=== PATIENT | male | born 1985 | race Caucasian/White ===

== ENCOUNTER 2016-02-15 18:29 | Inpatient (IN) | payer OTHER ==
[~2016-02-15] VITALS: Ht 172.7 cm; Wt 81.2 kg
[~2016-02-15 18:29] MED LIST: DEPAKOTE250 M1 PO; METHYLPHENIDATE5 MG PO; NEURONTIN800 M1 PO; NORTRIPTYLINE25 M1 PO; PROTONIX40 M3 PO; PROVENTIL HFA6.7 GM INH; SINGULAIR10 M1 PO; TRILEPTAL600 MG PO
--- NOTE | 2016-02-15 18:36 | ED PSYCHIATRIC COMPLAINT ---
History of Present Illness General Chief Complaint: ETOH/Drug Related Complaint Stated Complaint: SI,ETOH DETOX Source: patient Exam Limitations: physical impairment Vital Signs & Intake/Output Vital Signs & Intake/Output Vital Signs Date Time Temp Pulse Resp B/P Pulse O2 O2 Flow FiO2 Ox Delivery Rate 02/14 2006 97 02/14 194 Room Air Room Air 02/15 1856 98.2 64 18 134/82 02/14 1845 98.2 64 20 134/82 97 Room Air Allergies Coded Allergies: peanut (Severe, ANAPHYLAXIS 09/04/15) clams (ITCHING SWELLING 09/04/15) wheat (WHOLE WHEAT SPECIFICALLY - GI UPSET 02/15/16) Reconcile Medications Albuterol Sulfate (Proventil Hfa) 6.7 GM HFA.AER.AD 2 PUF INH 4 TIMES/DAY PRN BREATHING PROBLEMS (Reported) Diphenhydramine HCl (Benadryl) 25 MG CAPSULE 1-2 CAP PO PRN SLEEP/ALLERGIES ( Reported) Gabapentin 400 MG CAPSULE 1 CAP PO TID ANXIETY/MOVEMENT/MOOD DISORDER ( Reported) Gabapentin (Neurontin) 800 MG TABLET 1 TAB PO QHS ANXIETY/MOVEMENT/MOOD DISORDER (Reported) Melatonin 5 MG TABLET 1 TAB PO PRN SLEEP (Reported) Montelukast Sodium (Singulair) 10 MG TABLET 1 TAB PO DAILY ALLERGIES ( Reported) Triage Note: PT BIBA FROM [facility] FOR ETOH DETOX. STATES HE LAST DRANK AT 0300 YESTERDAY AND DRINKS A 5TH OF VODKA DAILY. PT ALSO STATES HE HAS HAD THOUGHTS OF SUICIDE WITHOUT PLAN. PT CHANGING NOW INTO [facility] AND IS WANDED Triage Nurses Notes Reviewed? yes Onset: Abrupt Duration: unknown duration Timing: remote history HPI: 02/15/16 30-year-old man presents to the emergency department requesting alcohol withdrawal. He also states that he's depressed and admits to suicidal ideation. He denies any prior history of DTs or withdrawal seizures. His last drink was earlier today. The onset of the symptoms were abrupt, the duration is unclear, the severity is significant as his symptoms required her to come to the emergency department for care. He also has a past medical history of asthma. He admits to chest tightness. He also states that he's been taking extra gabapentin, not overdose but to assist him with his withdrawal. (JIMENEZ TOLENTINO DO) Past History Medical History Any Pertinent Medical History? see below for history Respiratory: asthma Gastrointestinal: ESOPHAGITIS Cancer(s): BRAIN CANCER Pneumonia Vaccine: 07/17/13 Surgical History Surgical History: BRAIN TUMOR REMOVAL Psychosocial History Who do you live with Family What is your primary language Azeri Family History Hx Contributory? No (JIMENEZ TOLENTINO DO) Review of Systems Review of Systems Constitutional: Denies: fever. EENTM: Denies: visual changes. Respiratory: Denies: short of breath. Cardiovascular: Reports: see HPI. GI: Reports: see HPI. Genitourinary: Reports: no symptoms. Musculoskeletal: Reports: no symptoms. Skin: Denies: rash. Neurological/Psychological: Reports: depressed. Hematologic/Endocrine: Reports: no symptoms. Immunologic/Allergic: Reports: no symptoms. (JIMENEZ TOLENTINO DO) Physical Exam Physical Exam General Appearance: alert, awake, anxious, mild distress Head: atraumatic, normal appearance Eyes: Bilateral: normal appearance, PERRL, EOMI. Ears, Nose, Throat: normal pharynx, normal ENT inspection Neck: normal inspection, supple Respiratory: normal breath sounds, chest non-tender, no respiratory distress Cardiovascular: regular rate/rhythm Gastrointestinal: soft, non-tender Extremities: normal range of motion, evidence of injury Neurological/Psychiatric: no motor/sensory deficits, awake, alert, anxious Appearance/Memory/Insight: disheveled Behavoir/Eye Contact/Speech: cooperative Thoughts/Hallucinations: no apparent hallucination Skin: intact, normal color, warm/dry SAD PERSONS SAD PERSONS Response Value Male Sex? yes 1 Depression/Hopelessness? yes 2 Previous Attempts/Psych Care yes 1 Excessive Ethanol/Drug Use? yes 1 Single//? yes 1 Social Support? has no support 1 Stated Future Intent? yes 2 Total 9 SAD PERSONS Done? yes (JIMENEZ TOLENTINO DO) Progress Differential Diagnosis: drug intoxication, drug overdose, drug withdrawal, DEPRESSION Plan of Care: Orders Procedure Date/time Status Admit to inpatient psych 02/15 2252 Active Add-on Test (ER Only) 02/14 2042 Active CIWA 02/14 2042 Active URINE DRUG SCREEN FOR ER ONLY 02/14 2042 Complete Continuous Observation Monitor 02/14 1949 Active TROPONIN LEVEL 02/14 1949 Complete SALICYLATE 02/14 1949 Complete LIPASE 02/14 1949 Complete ETHANOL 02/14 1949 Complete COMPREHENSIVE METABOLIC PANEL 02/14 1949 Complete CBC WITHOUT DIFFERENTIAL 02/14 1949 Complete AMYLASE 02/14 1949 Complete EKG 02/14 1949 Active ED CRISIS PSYCH CONSULT 02/14 1949 Active Laboratory Tests 02/15/16 2100: Salicylates < 1.0, Serum Alcohol < 10.0 02/15/16 2100: Anion Gap 12, Estimated GFR > 60, BUN/Creatinine Ratio 11.1, Glucose 85, Calcium 9.0, Total Bilirubin 0.6, AST 27, ALT 29, Alkaline Phosphatase 46, Troponin I < 0.01, Total Protein 6.9, Albumin 4.3, Globulin 2.6, Albumin/Globulin Ratio 1.7, Amylase < 30 L, Lipase 39, CBC w Diff NO MAN DIFF REQ, RBC 4.46 L, MCV 91.9, MCH 31.4 H, RDW 14.9 H, MPV 8.5, Gran % 49.5, Lymphocytes % 33.4, Monocytes % 5.8, Eosinophils % 10.7 H, Basophils % 0.6, Absolute Granulocytes 2.8, Absolute Lymphocytes 1.9, Absolute Monocytes 0.3, Absolute Eosinophils 0.6, Absolute Basophils 0, PUBS MCHC 34.2, Urine Opiates Screen < 100.00, Methadone Screen < 40, Barbiturate Screen < 60, Ur Phencyclidine Scrn < 6.00, Amphetamines Screen < 100, U Benzodiazepines Scrn < 85, Urine Cocaine Screen < 50, Urine Cannabis Screen < 5.00 Initial ED EKG: PENDING (JIMENEZ TOLENTINO DO) Departure Departure Disposition: STILL A PATIENT Condition: Stable Clinical Impression Primary Impression: Depression Secondary Impressions: Alcohol dependence with withdrawal Referrals: PATIENT HAS NO PRIMARY CARE DR (PCP/Family) Referred to [facility] as new patient No Departure Forms: Customer Survey General Discharge Information Comments 02/15/16 8 PM Patient signed out to Dr. Dietz at 7 PM. (JIMENEZ TOLENTINO DO) Psych Admission Note Psychiatric Admission: I have seen and evaluated BARRIE NOVAK. I have also reviewed all the pertinent lab results and diagnostic results. BARRIE NOVAK will be admitted to our inpatient Psychiatric unit for treatment and care. (DIEGO HERNANDEZ,LINDSEY Dolan) Critical Care Note Critical Care Note Critical Care Time: 30-74 min (JIMENEZ TOLENTINO DO)
[2016-02-15 18:56] VITALS: BP 134/82
[2016-02-15] MEDS ORDERED: GABAPENTIN400 M2 PO (20:14)
[2016-02-15] MEDS ORDERED: NEURONTIN800 M2 PO (20:15)
[2016-02-15] MEDS ORDERED: BENADRYL25 MG PO (20:16)
[2016-02-15] MEDS ORDERED: MELATONIN5 M7 PO (20:16)
[2016-02-15 21:16] LABS: ABSOLUTE BASOPHIL COUNT 0 /CUMM (0.0-0.2); ABSOLUTE EOSINOPHIL COUNT 0.6 /CUMM (0.0-0.7); ABSOLUTE GRANULOCYTE CT 2.8 /CUMM (1.4-6.5); ABSOLUTE LYMPH COUNT 1.9 /CUMM (1.2-3.4); ABSOLUTE MONOCYTE COUNT 0.3 /CUMM (0.10-0.60); BASOPHIL % 0.6 % (0.0-2.0); EOSINOPHIL % 10.7 % (0-5); GRANULOCYTE % 49.5 % (42.2-75.2); HEMATOCRIT 40.9 % (42-52); MEAN CORPUSCULAR HGB 31.4 PG (27.0-31.0); MEAN CORPUSCULAR HGB CONC 34.2 G/DL (33.0-37.0); MEAN CORPUSCULAR VOLUME 91.9 FL (80.0-94.0); MEAN PLATELET VOLUME 8.5 FL (7.4-10.4); PLATELET COUNT 166 /CUMM (130-400); RBC DISTRIBUTION WIDTH 14.9 % (11.5-14.5); RED BLOOD CELL CT 4.46 /CUMM (4.70-6.10); WHITE BLOOD CELL COUNT 5.6 /CUMM (4.8-10.8)
--- NOTE | 2016-02-15 22:49 | ED PSYCH CRISIS CONSULTATION ---
Crisis Consult Basic Assessment Date of Consult: 02/15/16 Responsible Person/Accompanied By: self/biba Insurance Authorization: Insurance #1: Insurance name: BALDEMAR BRITTON Phone number: Policy number: [id number] Group number: BALDEMAR Garcia Authorization number: ED Provider: Patient's ED Provider: JIMENEZ TOLENTINO DO Primary Care Physician: Patient's PCP: PATIENT HAS NO PRIMARY CARE DR PCP's Phone Number: Current Psychiatrist: [facility] Chief Complaint: ETOH/Drug Related Complaint Patient's Quote: i'm thinking about suicide Present Illness: Pt is a 30 yo male biba this evening to [facility] after he dialed 911 and reported thinking about killing himself.Pt was last inpatient at [facility] in August 2015 and discharged to [facility] inpatient for 120 days. Since his discharge 3 weeks ago pt reports daily etoh use - 750ml vodka/day, increased depression, anxiety with paninc attacks and SI beginning yesterday. He reports decreased appetite, poor sleep, impaired memory, concentrayion and lack of energy. [facility] been sporadically staying with father, mother and friends. Pt reports a hx of adhd and depression starting 5 yrs ago following brain tumor removal. Pt reports taking gabapentin 400mg tID and 800 mg qhs. Pt reports headaches and inability to function. PT reports thoughts of either o/d on medications and etoh or step in front of a car. Pt presents as depressed, cooperative and Ox3. Pt is voluntarily seeking inpatient psychiatric admission. Patient's Address: [place] [address] Other Phone Number: Who Do You Live With? Other (see notes) ([facility]) Family/Informants Interviewed: left vm for father Allergies - Coded Allergies: peanut (Severe, ANAPHYLAXIS 09/04/15) clams (ITCHING SWELLING 09/04/15) wheat (WHOLE WHEAT SPECIFICALLY - GI UPSET 02/15/16) Current Medications - Scheduled Medications Gabapentin 400 MG CAPSULE 1 CAP PO TID ANXIETY/MOVEMENT/MOOD DISORDER #90 ( Reported) Entered as Reported by LOUISE CACERES on 02/15/162013 Gabapentin (Neurontin) 800 MG TABLET 1 TAB PO QHS ANXIETY/MOVEMENT/MOOD DISORDER (Reported) Entered as Reported by LOUISE CACERES on 02/15/162014 Montelukast Sodium (Singulair) 10 MG TABLET 1 TAB PO DAILY ALLERGIES ( Reported) Entered as Reported by MARY LONDONO on 09/04/15 1009 Scheduled PRN Medications Albuterol Sulfate (Proventil Hfa) 6.7 GM HFA.AER.AD 2 PUF INH 4 TIMES/DAY PRN BREATHING PROBLEMS (Reported) Entered as Reported by MARY LONDONO on 09/04/15 1011 Diphenhydramine HCl (Benadryl) 25 MG CAPSULE 1-2 CAP PO PRN SLEEP/ALLERGIES ( Reported) Entered as Reported by LOUISE CACERES on 02/15/162015 Melatonin 5 MG TABLET 1 TAB PO PRN SLEEP (Reported) Entered as Reported by LOUISE CACERES on 02/15/162015 Laboratory Results: Laboratory Tests 02/15/16 2100: Salicylates < 1.0, Serum Alcohol < 10.0 02/15/16 2100: Anion Gap 12, Estimated GFR > 60, BUN/Creatinine Ratio 11.1, Glucose 85, Calcium 9.0, Total Bilirubin 0.6, AST 27, ALT 29, Alkaline Phosphatase 46, Troponin I < 0.01, Total Protein 6.9, Albumin 4.3, Globulin 2.6, Albumin/Globulin Ratio 1.7, Amylase < 30 L, Lipase 39, CBC w Diff NO MAN DIFF REQ, RBC 4.46 L, MCV 91.9, MCH 31.4 H, RDW 14.9 H, MPV 8.5, Gran % 49.5, Lymphocytes % 33.4, Monocytes % 5.8, Eosinophils % 10.7 H, Basophils % 0.6, Absolute Granulocytes 2.8, Absolute Lymphocytes 1.9, Absolute Monocytes 0.3, Absolute Eosinophils 0.6, Absolute Basophils 0, PUBS MCHC 34.2, Urine Opiates Screen < 100.00, Methadone Screen < 40, Barbiturate Screen < 60, Ur Phencyclidine Scrn < 6.00, Amphetamines Screen < 100, U Benzodiazepines Scrn < 85, Urine Cocaine Screen < 50, Urine Cannabis Screen < 5.00 Past History Past Medical History Respiratory: asthma Gastrointestinal: ESOPHAGITIS Psychiatric: NONTYPICAL MOOD DISORDER DEPRESSION, ANXIETY Cancer(s): BRAIN CANCER Past Surgical History Surgical History: BRAIN TUMOR REMOVAL Psychosocial History Strengths/Capabilities: intelligent, supportive mother Physical Limitations (Interventions): S/p brain surgery and removal of part of brain Psychiatric Treatment History Psych Treatment Psychiatric Treatment Yes Inpatient Treatment Yes Outpatient Treatment Yes Location of Treatment [facility], [facility] Reason for Treatment depression; ETOH detox Dates of Treatment last [facility] August 2015; IOP 2013 Response to Treatment relapse following discharge [facility] discharge 01/09 Diagnosis by History: Depression, Anxiety, ADD Substance Use/Abuse History Drug Use/Abuse Substances Used/Abused Yes Substance Used/Abused Alcohol Last Used 3am How much used/taken 1/5 Vodka How often daily For how long past 3 weeks Substance Abuse Treatment Substance Abuse Treatment Past Substance Abuse TX Yes Inpatient Treatment Yes Outpatient Treatment Yes Location of Treatment [facility] August 2015; OP 2013 Reason for Treatment ETOH detox and tx Response to Treatment frequent relapse Comments: pt reports relapsing immediately following d/c from [facility] Current Mental Status Mental Status Orientation: Person, Place, Situation Affect: Anxious, Depressed, Hopeless, Sad Speech: WNL Neuro-vegetative: Appetite Decreased, Concentration Poor, Energy Decreased, Helpless, Loss of Interest, Sleep Disturbance Appearance Appearance- Dress/Hygiene: hospital gown. sitting up on bed during consult. Head in hand reporting bad headache. Behaviors Thought Process: WNL Thought Content: WNL Memory: Impaired Insight: Fair SI/HI Risk Assessment Past Suicidal Ideation/Attempts Yes Current Suicidal Ideation/Att Yes Past Homicidal Ideation/Att: No Current Homicidal Ideation/Attempts No Degree of Intent: Thoughts/No Intent Danger To: Self Gravely Disabled: Poor Impulse Control, Poor Judgment Risk Factors: chronic/serious med cond., high anxiety/distress, history of suicide atmpts, SA/MH hospitalized, substance abuse, isolate/no social support, poor impulse control, lives alone, male, limited support Lethality Ratin PTSD Checklist PTSD Done? patient declined ED Management Sitter: Yes Restraints: No DSM5/PS Stressors/Medical Prob Diagnosis' (DSM 5, Stressors, Medical): unspecified depressive d/o homeless Current GAF: 25 Comments: Pt reports not following up with outpatient tx since [facility] discharge. Pt reports continuing to take gabapentin. Departure Disposition Psych Medical Clearance Date: 02/15/16 Medically Cleared at: 2200 Time Started: 2204 Time Ended: 2244 Psychiatrist Consulted: Maria Eugenia Vasquez MD Date Disposition Established: 02/15/16 Time Disposition Established: 2249 Plan for Disposition - Modality: Inpatient Psychiatry Facility: [facility] Rationale for Disposition: PT reports positive SI with increased depression, anxiety and daily etoh abuse Type of IP Admission: Voluntary Referrals PATIENT HAS NO PRIMARY CARE DR (PCP/Family)
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
[2016-02-15 23:46] VITALS: BP 131/83
[2016-02-16] VITALS (11 sets, daily range): BP systolic 105–150; BP diastolic 68–92
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
--- NOTE | 2016-02-16 10:43 | History & Physical ---
General Information and HPI MD Statement: I have seen and personally examined BARRIE NOVAK and documented this H&P. The patient is a 30 year old M who presented with a patient stated chief complaint of requesting alcohol detox]. Source of Information: patient Exam Limitations: no limitations History of Present Illness: 30-year-old male in by ambulance from [place] for alcohol detox drinking a fifth toe but Every day also has suicidal ideations with no plan as been feeling very depressed will be admitted for evaluation and treatment Allergies/Medications Allergies: Coded Allergies: peanut (Severe, ANAPHYLAXIS 09/04/15) clams (ITCHING SWELLING 09/04/15) wheat (WHOLE WHEAT SPECIFICALLY - GI UPSET 02/15/16) Home Med list Albuterol Sulfate (Proventil Hfa) 6.7 GM HFA.AER.AD 2 PUF INH 4 TIMES/DAY PRN BREATHING PROBLEMS (Reported) Diphenhydramine HCl (Benadryl) 25 MG CAPSULE 1-2 CAP PO PRN SLEEP/ALLERGIES ( Reported) Gabapentin (Neurontin) 800 MG TABLET 1 TAB PO QHS ANXIETY/MOVEMENT/MOOD DISORDER (Reported) Gabapentin 400 MG CAPSULE 1 CAP PO TID ANXIETY/MOVEMENT/MOOD DISORDER ( Reported) Melatonin 5 MG TABLET 1 TAB PO PRN SLEEP (Reported) Montelukast Sodium (Singulair) 10 MG TABLET 1 TAB PO DAILY ALLERGIES ( Reported) Compliance With Home Meds: UNKNOWN Past History Travel History Traveled to [place] past 21 day No Medical History EENT: NONE Respiratory: asthma Gastrointestinal: ESOPHAGITIS Hepatic: NONE Renal: NONE Musculoskeletal: NONE Psychiatric: NONTYPICAL MOOD DISORDER DEPRESSION, ANXIETY,ADD Endocrine: NONE Blood Disorders: NONE Cancer(s): BRAIN CANCER 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 Other Employment History Employment Unemployed Review of Systems Review of Systems Constitutional: Reports: see HPI. Exam & Diagnostic Data Last 24 Hrs of Vital Signs/I&O Vital Signs Date Time Temp Pulse Resp B/P Pulse O2 O2 Flow FiO2 Ox Delivery Rate 02/15 0809 96.3 63 150/78 02/15 0808 96.3 63 150/78 02/15 0533 62 105/68 02/15 0232 61 136/76 02/14 2346 95.6 61 131/83 02/14 2255 98.6 66 18 129/80 98 Room Air 02/14 2006 97 02/14 1941 Room Air Room Air 02/14 1856 98.2 64 18 134/82 02/14 1845 98.2 64 20 134/82 97 Room Air Intake & Output 02/15 1600 02/15 0800 02/15 0000 Intake Total Output Total Balance Patient 179 lb Weight Physical Exam General Appearance Alert, Oriented X3, Cooperative, No Acute Distress Skin No Rashes, No Breakdown HEENT Atraumatic, PERRLA, EOMI, Mucous Membr. moist/pink Neck Supple, No JVD, No thryomegaly, +2 Carotid Pulse wo Bruit, No LAD Lymphatic Axillary nl, Cervical nl Cardiovascular Regular Rate, No Murmurs Lungs Clear to Auscultation, Normal Air Movement Abdomen Normal Bowel Sounds, Soft, No Hepatospenomegaly, No Masses, tender to deep palpation in the epigastric area Neurological nonfocal Extremities No Clubbing, No Cyanosis, No Edema, Normal Pulses, No Tenderness/ Swelling Last 24 Hrs of Labs/Shane: Laboratory Tests 02/15/16 2100: Salicylates < 1.0, Serum Alcohol < 10.0 02/15/16 2100: Anion Gap 12, Estimated GFR > 60, BUN/Creatinine Ratio 11.1, Glucose 85, Calcium 9.0, Total Bilirubin 0.6, AST 27, ALT 29, Alkaline Phosphatase 46, Troponin I < 0.01, Total Protein 6.9, Albumin 4.3, Globulin 2.6, Albumin/Globulin Ratio 1.7, Amylase < 30 L, Lipase 39, TSH 1.720, CBC w Diff NO MAN DIFF REQ, RBC 4.46 L, MCV 91.9, MCH 31.4 H, RDW 14.9 H, MPV 8.5, Gran % 49.5, Lymphocytes % 33.4, Monocytes % 5.8, Eosinophils % 10.7 H, Basophils % 0.6, Absolute Granulocytes 2.8, Absolute Lymphocytes 1.9, Absolute Monocytes 0.3, Absolute Eosinophils 0.6, Absolute Basophils 0, PUBS MCHC 34.2, Urine Opiates Screen < 100.00, Methadone Screen < 40, Barbiturate Screen < 60, Ur Phencyclidine Scrn < 6.00, Amphetamines Screen < 100, U Benzodiazepines Scrn < 85, Urine Cocaine Screen < 50, Urine Cannabis Screen < 5.00 Diagnostic Data ITS Data Unobtainable at this time Assessment/Plan As Ranked By This Provider Problem List: 1. Alcohol dependence with withdrawal 2. Major depression 3. Alcohol addiction Core Measures/Miscellaneous Acute Coronary Syndrome ACS Diagnosis: No Cerebrovascular Accident CVA/TIA Diagnosis: No Congestive Heart Failure CHF Diagnosis: No Venous Thromboembolism VTE Risk Factors: No Risk Factors VTE Prophylaxis Ordered Inpt: Early Ambulation No Mech VTE prophylaxis d/t: No contraindications No VTE Pharm Prophylaxis d/t: No contraindications VTE Diagnosis: No VTE Type: NONE VTE Confirmed by (Test): NONE Severe Sepsis Severe Sepsis Present: No Septic Shock Septic Shock Present: No Miscellaneous Documentation Attending Case Discussed With: SANDRA VAIL MD Primary Care Physician: PATIENT HAS NO PRIMARY CARE DR Patient sees these Specialists Psychiatry Level of Patient Care: [facility] Consults Needed: Consulting Specialty: Psychiatry Consulting Physician: Dr. Vail Reason for Consult: alcohol excess and withdrawal depression with suicidal ideations
--- NOTE | 2016-02-16 12:52 | SOCIAL WORKER TX PLAN PSYCH ---
Treatment Plan - Please Document: - Evidence that there is ongoing collaboration between - the patient and the interdisciplinary team, - including the patient's active participation and - responsibility for engaging in the treatment regimen, - and that the treatment plan is individualized and - relevant to the patient's conditions. - Treatment plan should reflect documentation indicating - that all active therapeutic efforts are included. Strengths/Capabilities: intelligent, Pt. wants to stay sober and do something with his life. r Physical Limitations (Interventions): S/p brain surgery and removal of part of brain Patient Identified Trmt Goals: " I want my life to be better then it has been." Discharge Plan: IOP Problem/Goals #1 Problem #1: suicidal ideation Goal (Short Term): Today I will attend 2 groups Today I will identify 2 stressors Today I will identify 2 positive supports Today I will work on recognizing 3 emotions I am feeling Goal (Brick Molder Hand): Be free of suicidal thoughts/attempts Develop 3 coping skills to deal with depression Identify 3 positive support systems to call in crisis Develop a crisis plan with 3 del rosario people Identify 2 positive traits per week about myself Identify 2 things I have to look forward to Identify 2 positive people in my life and 1 thing I appreciate about them Interventions: Learn ways to manage depressive symptoms accordingly and identify positive supports to manage life stressors and mood fluctuations. Modalities: Encourage groups, education on depression, provide CBT treatment, family meeting. Problem/Goals #2 Problem #2: alcohol dependence/abuse Goal (Short Term): Be free of drug/alcohol use/abuse Avoid people, places and situations where temptation might be overwhelming Learn five triggers for alcohol & drug use Goal (Skilled Nursing): 1) Refrain from alcohol use 2) Identify 3 triggers for use 3) Identify 3 sober supports 4) Identify 3 coping skills Interventions: Learn ways to manage cravings to use substances accordingly and identify coping skills to prevent relapse from occurring due to anxious/depressed feelings. Modalities: Encourage groups, education on addiction, provide CBT treatment, family meeting. DSM5/PS Stressors/Medical Prob Diagnosis' (DSM 5, Stressors, Medical): unspecified depressive d/o homeless Current GAF: 25 Treatment Team - Responsibilities of members of the treatment team include: - Medication Management- MD or RADIO DESPATCHER - Medication Administration and Monitoring- Nurse - Group Therapy- Occupational Therapist - 1:1 Therapy,Disch Planning,family involvement-Jig Boring Machine Set Up Operator
--- NOTE | 2016-02-16 14:02 | IP INCIDENTAL NOTE PSYCH ---
Incidental Note Notation: MARGARITA obtained for Dr. Rola Morin (see in paper chart). This sports book writer left VM for Dr. Rola Morin (#[phone]) at [facility], requesting collateral on patient. Awaiting return phone call.
--- NOTE | 2016-02-16 16:47 | IP INCIDENTAL NOTE PSYCH ---
Incidental Note Notation: Received collateral phone call from Dr. Rola Morin from [facility]. Per collateral : The patient had been treated at [facility]'s transitional living program from summer to 2015. While there, he was slowly tapered off of Depakote 250mg QAM/500mg QPM, was continued on Concerta 27mg daily, and Gabapentin 400mg TID and 800mg at HS. Depakote had been started during last inpatient [facility] hospitalization in August 2015 , following the patient becoming "manic" on Prozac. Depakote had been tapered off to profound flatness/?depression observed by Dr. Morin. Patient had been fairly stable on Concerta 27mg daily and Gabapentin 400mg TID and 800mg at HS. However the patient was discharged from [facility] due to drinking intermittently during program course. Dr. 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 She believes that this led to severe memory and impulsivity problems. She reported that her clinical impression of the patient was consistent with premorbid Bipolar disorder, and knew of only one prior episode of ozzie experienced by the patient, following a trial of Prozac. She reported that this is the most dangerous week of the year for the patient , as this was around the time last year when the patient's brother questionably suicided. She reported that the patient's brother had been intoxicated and it is unclear if it was an intentional suicide attempt, however resulted in him walking in front of a train. During [facility] program course, the patient did not meet criteria for [facility] services, and his disability status was pending. Dr. Morin emphasized that when the patient's disability is processed, he would qualify for mental health housing. She believes a large component of the patient's depression is related to housing issues, as his parent's enable him to drink alcohol when he stays there. Dr. Morin reported that [facility] would be willing to accept him back to their outpatient program (#[phone]), and also that the patient had been well connected to [facility] program (#[phone]), and had done well there in the past. Dr. Morin recommended patient be trialed on alcohol psychopharmacologic agent of either antabuse, naltrexone or campral given the severity of his alcohol use. She further recommended restarting the patient on Concerta, as this had helped the patient's memory function. She reported no history of the patient abusing stimulant medication, and reported that she would be willing to continue Concerta if the patient returned to [facility] following discharge from [facility]. Dr. Morin reported knowledge of the patient previously trialing Nortriptyline which resulted in HTN, and Risperdal which the patient didn't tolerate well. Per her report, it seemed unclear how adequate the patient's previous trials of SSRIs and other psychotropics were given his drinking pattern. Dr. Morin requested that she be contacted prior to the patient's discharge, and be made aware of his discharge plan. She strongly recommended that the patient follow-up with [facility] or [facility] outpatient, in addition to a long-term rehab such as [facility].
[2016-02-17] VITALS (8 sets, daily range): BP systolic 115–137; BP diastolic 76–84
--- NOTE | 2016-02-17 13:24 | CP SOUTH PROGRESS NOTE PSYCH ---
Psych (Inpt) Progress Note Progress Note Include the following elements, when applicable: Involvement in the active treatment of the patient with behavioral observations of the patient and the patient's response to the treatment. Review of the ongoing treatment process in the context of the treatment plan. Indication of how multi-disciplinary staff members are carrying out the treatment plan. Plans for future interventions and recommendations for revision of the treatment plan. Liaison with other physicians/providers. Progress Note: D/w nursing staff, seen this morning. Says "I feel huang shitty", says he is anxious and withdrawaing from EtOH. He otherwise denies AVH, SI or HI. Vitals reviewed and wnl. No new labs. CIWAs most recently minimal. MSE: poorly groomed CM, limited eye contact. Speech minimal. Mood 'shitty', affect constricted, mildly irritable. TP simple. Content somatic. Cognition grossly intact. I/J fair. A/P: Continue ativan taper and CIWA monitoring. Rest of plan per primary team.
[2016-02-18] VITALS (8 sets, daily range): BP systolic 115–135; BP diastolic 65–78
--- NOTE | 2016-02-18 16:40 | CP SOUTH PROGRESS NOTE PSYCH ---
Psych (Inpt) Progress Note Progress Note Include the following elements, when applicable: Involvement in the active treatment of the patient with behavioral observations of the patient and the patient's response to the treatment. Review of the ongoing treatment process in the context of the treatment plan. Indication of how multi-disciplinary staff members are carrying out the treatment plan. Plans for future interventions and recommendations for revision of the treatment plan. Liaison with other physicians/providers. Progress Note: D/w nursing staff, seen this morning. Remains isolative in bed. Somatically oriented. "I have a headache". He otherwise denies AVH, SI or HI. Vitals reviewed and wnl. No new labs. CIWAs minimal. MSE: poorly groomed CM, limited eye contact. Speech minimal. Mood 'not too good' , affect constricted, mildly irritable. TP simple. Content somatic. Cognition grossly intact. I/J fair. A/P: Continue ativan taper and CIWA monitoring. Rest of plan per primary team.
[2016-02-19] VITALS (8 sets, daily range): BP systolic 102–120; BP diastolic 60–72
--- NOTE | 2016-02-19 11:14 | SOCIAL WORKER PROG NOTE PSYCH ---
Social Work Progress Note Progress Note Patient found sleeping in his room around 10AM today. This feature writer asked patient if we could meet and he agreed with no resistence. Patient reported feeling very depressed today and over the weekend. He reported his depression to be a 7 out of 10 today with 10 being the worst. He reported some anxiety, rating it a 3 out of 10. Patient denied any SI today but reported +SI over the weekend with no plan. Patient reported that he did not have any family visit this weekend. He reported that on Friday he informed his mother that he was in the hospital but he is refusing to have family partake in his treatment. He reported no desire for any family to visit over the weekend and no family has reached out to this feature writer as well. Patient reports that ideally he wishes to return back to [facility] and treatment with [facility]. We attempted to call [facility] today to see his bed status and they were unable to give that information due to the individual he needed to speak to being out for the holiday. Patient will try to call again tomorrow and we will call [facility] after we find out bed status. Patient encouraged to try to refrain from isolating in room today and attend groups that are available today.
--- NOTE | 2016-02-19 11:16 | SOCIAL WORKER PROG TO GOALS ---
Progress Toward Goals Strengths/Capabilities: intelligent, Pt. wants to stay sober and do something with his life. r Physical Limitations (Interventions): S/p brain surgery and removal of part of brain Patient Identified Trmt Goals: " I want my life to be better then it has been." Discharge Plan: [facility] Problem/Goals #1 Problem #1: suicidal ideation Goal (Short Term): Today I will attend 2 groups Today I will identify 2 stressors Today I will identify 2 positive supports Today I will work on recognizing 3 emotions I am feeling Goal (Autocad Detailer): Be free of suicidal thoughts/attempts Develop 3 coping skills to deal with depression Identify 3 positive support systems to call in crisis Develop a crisis plan with 3 del rosario people Identify 2 positive traits per week about myself Identify 2 things I have to look forward to Identify 2 positive people in my life and 1 thing I appreciate about them Interventions: Learn ways to manage depressive symptoms accordingly and identify positive supports to manage life stressors and mood fluctuations. Progress: Patient continues to report depressed mood but denies SI. He is not able to identify possitive supports at this time. He has been sleeping frequently on the unit and isolating. Problem/Goals #2 Problem #2: alcohol dependence/abuse Goal (Short Term): Be free of drug/alcohol use/abuse Avoid people, places and situations where temptation might be overwhelming Learn five triggers for alcohol & drug use Goal (Custodial): 1) Refrain from alcohol use 2) Identify 3 triggers for use 3) Identify 3 sober supports 4) Identify 3 coping skills Interventions: Learn ways to manage cravings to use substances accordingly and identify coping skills to prevent relapse from occurring due to anxious/depressed feelings.
--- NOTE | 2016-02-19 11:39 | CP SOUTH PROGRESS NOTE PSYCH ---
Psych (Inpt) Progress Note Progress Note Include the following elements, when applicable: Involvement in the active treatment of the patient with behavioral observations of the patient and the patient's response to the treatment. Review of the ongoing treatment process in the context of the treatment plan. Indication of how multi-disciplinary staff members are carrying out the treatment plan. Plans for future interventions and recommendations for revision of the treatment plan. Liaison with other physicians/providers. Progress Note: D/w nursing staff, seen this morning. Remains isolative in bed. Somatic complaints have improved, now simply says "I'm depressed". He denies AVH/SI/HI. Vitals reviewed and wnl. No new labs. CIWAs minimal. MSE: poorly groomed CM, limited eye contact. Speech minimal. Mood 'I'm depressed ', affect constricted, mildly irritable. TP impoverished. Content without SI/HI/ AVH. Cognition grossly intact. I/J fair. A/P: Continue ativan taper and CIWA monitoring. Rest of plan per primary team.
--- NOTE | 2016-02-19 13:34 | SOCIAL WORKER PROG NOTE PSYCH ---
Social Work Progress Note Progress Note atient was described by nursing staff as "edgy" and distant . He is aware that he will be here to await probate. He is cooperative, but not proactive at all. Attemted to do continued stay review, but not able to comlete this as office closed. Miriam Sol stated she will record the attemp to do the review.
[2016-02-20] VITALS (8 sets, daily range): BP systolic 128–144; BP diastolic 69–78
--- NOTE | 2016-02-20 12:42 | CP SOUTH PROGRESS NOTE PSYCH ---
Psych (Inpt) Progress Note Progress Note Include the following elements, when applicable: Involvement in the active treatment of the patient with behavioral observations of the patient and the patient's response to the treatment. Review of the ongoing treatment process in the context of the treatment plan. Indication of how multi-disciplinary staff members are carrying out the treatment plan. Plans for future interventions and recommendations for revision of the treatment plan. Liaison with other physicians/providers. Progress Note: [I discussed this patient's progress to date, current mental status, treatment process in the context of the treatment plan, and discharge planning with staff/ team in the daily morning inpatient team meeting. I also met with the patient myself in individual session.] SUBJECTIVE: "Mentally, I feel slow. I can't concentrate." OBJECTIVE: Current Medications Sig/Courtney Start time Last Medication Dose Route Stop Time Status Admin Acetaminophen 500 MG Q6P PRN 02/14 2345 AC PO Al Hydroxide/Mg 30 ML Q4-6 PRN PRN 02/14 2345 AC Hydroxide PO Albuterol Sulfate 2 PUF Q4-6 PRN PRN 02/15 0103 AC 02/15 INH 0542 Folic Acid 1 MG DAILY 02/15 1000 AC 02/19 PO 0809 Gabapentin 800 MG 0 02/15 2200 AC 02/18 PO 2148 Gabapentin 400 MG 1800 02/15 1800 AC 02/18 PO 1838 Gabapentin 400 MG 1200 02/15 1200 AC 02/18 PO 1220 Gabapentin 400 MG 0800 02/15 0800 AC 02/19 PO 0809 Hydroxyzine HCl 50 MG Q6-PRN PRN 02/14 2345 AC 02/18 PO 1220 Lamotrigine 25 MG 0800 02/15 1400 AC 02/19 PO 0809 Lorazepam 2 MG Q2P PRN 02/14 234 AC PO Lorazepam 1 MG Q2P PRN 02/14 2345 AC 02/15 PO 0052 Magnesium Hydroxide 30 ML AT BEDTIME PRN 02/14 234 AC PO Melatonin 5 MG AT BEDTIME 02/15 2200 AC 02/18 PO 2149 Methylphenidate HCl 5 MG 0800,1300 02/19 1300 AC PO Montelukast Sodium 10 MG AT BEDTIME 02/15 2200 AC 02/18 PO 2149 Multivitamins 1 TAB DAILY 02/15 1000 AC 02/19 PO 0809 Nicotine 2 MG Q2 HRS NEEDED PRN 02/16 1845 AC 02/18 PO 1838 Thiamine HCl 100 MG DAILY 02/15 1000 AC 02/19 PO 0810 Trazodone HCl 50 MG AT BEDTIME NEED.. 02/14 2345 AC 02/18 PO 2328 Vital Signs Date Time Temp Pulse Resp B/P Pulse O2 O2 Flow FiO2 Ox Delivery Rate 02/19 1248 84 128/78 02/19 1245 84 128/78 02/19 0833 97.6 59 128/71 02/19 0804 97.6 59 128/71 02/18 2002 97.5 64 119/72 02/18 1941 97.5 64 119/72 02/18 1640 93 102/60 02/18 1639 68 120/69 ASSESSMENT: Chart reviewed. Met with the patient today, who was A&Ox4. He appeared slow to process on encounter, and described his mood as "foggy, I can't concentrate." Patient reported depression of 4/10 (10 being the worst) and anxiety of 0/10 (10 being the worst). He reported depressive symptoms were secondary to poor concentration and memory issues. He denied symptoms of alcohol withdrawal. There were no objective signs of alcohol withdrawal. VSS. Ativan taper for Alcohol detox was successfully completed on 02/19/16. The patient reported feeling depressed over the holiday weekend, and reported he had no visits or phone calls from family. He reported feeling hopeless related to this. He denied feeling hopeless, helpless, and worthless today. He denied active/passive suicidal ideation, plans and intent. He denied symptoms of psychosis, and denied auditory and visual hallucinations. Thought process was linear, and organized. Concentration poor. Judgement/insight appeared limited. This specification writer spoke to Dr. Rola Morin (patient's outpatient psychiatrist)on , who was in favor of the patient resuming Concerta for impaired concentration/memory. She reported the patient had no history of misusing Concerta, and that it improved his concentration/memory issues related to s/p brain surgery in 2010. Of note, the patient had been trialed on Ritalin 10mg BID in August 2015 on [facility] with good effect on memory/concentration. Reviewed with the patient medication education on Ritalin (given that Concerta is nonformulary in hospital). The patient was agreeable to low dose trial Ritalin 5mg BID for impaired concentration/memory s/p brain surgery in 2010. Will monitor the patient's psychiatric symptoms on low dose Ritalin. Patient verbalized the risk/benefit/SE profiles of Ritalin, and was agreeable to trial. PLAN: 1. Continue monitoring the patient on unit for safety and mood. 2. Start Ritalin 5mg BID for impaired concentration/memory. 3. Consider trial of Tegretol if needed for mood stabilization. Will continue to monitor. 4. Dispo planning per primary team.
--- NOTE | 2016-02-20 13:45 | SOCIAL WORKER PROG NOTE PSYCH ---
Social Work Progress Note Progress Note Patient reports feeling somewhat better today compared to yesterday. Patient denies SI today and reports no SI since day but continues to report feeling depressed. He is isolating less today, spending less time in his room and seen socializing more with peers. Patient called [facility] today and they have confirmed that his bed is secure for him to return to once he discharges the hospital. Patient relieved to hear this as he wishes to return back there. Patient expressed his desire to do IOP with post discharge. [facility] that he will be able to have transportation to and from the program. Patient is aware that we are planning to continue his hopsitalization for a few more days to monitor med adjustments and his mood. Patient agrees to stay in the hospital and we will arrange IOP intake once closer to discharge.
[2016-02-21 07:43] VITALS: BP 102/72
--- NOTE | 2016-02-21 10:37 | CP SOUTH PROGRESS NOTE PSYCH ---
Psych (Inpt) Progress Note Progress Note Include the following elements, when applicable: Involvement in the active treatment of the patient with behavioral observations of the patient and the patient's response to the treatment. Review of the ongoing treatment process in the context of the treatment plan. Indication of how multi-disciplinary staff members are carrying out the treatment plan. Plans for future interventions and recommendations for revision of the treatment plan. Liaison with other physicians/providers. Progress Note: [I discussed this patient's progress to date, current mental status, treatment process in the context of the treatment plan, and discharge planning with staff/ team in the daily morning inpatient team meeting. I also met with the patient myself in individual session.] SUBJECTIVE: "I feel a little better." OBJECTIVE: Current Medications Sig/Courtney Start time Last Medication Dose Route Stop Time Status Admin Acetaminophen 500 MG Q6P PRN 02/14 2345 AC PO Al Hydroxide/Mg 30 ML Q4-6 PRN PRN 02/14 2345 AC Hydroxide PO Albuterol Sulfate 2 PUF Q4-6 PRN PRN 02/15 0103 AC 02/15 INH 0542 Aripiprazole 5 MG 0800 02/20 1045 AC PO Folic Acid 1 MG DAILY 02/15 1000 AC 02/20 PO 0750 Gabapentin 800 MG 0 02/15 2200 AC 02/19 PO 2140 Gabapentin 400 MG 1800 02/15 1800 AC 02/19 PO 1825 Gabapentin 400 MG 1200 02/15 1200 AC 02/19 PO 1330 Gabapentin 400 MG 0800 02/15 0800 AC 02/20 PO 0751 Hydroxyzine HCl 50 MG Q6-PRN PRN 02/14 2345 AC 02/18 PO 1220 Lamotrigine 25 MG 00 02/15 1400 AC 02/19 PO 0809 Lorazepam 2 MG Q2P PRN 02/14 2345 DC PO Lorazepam 1 MG Q2P PRN 02/14 2345 DC 02/15 PO 0052 Magnesium Hydroxide 30 ML AT BEDTIME PRN 02/14 2345 AC PO Melatonin 5 MG AT BEDTIME 02/15 2200 AC 02/19 PO 2140 Methylphenidate HCl 5 MG 0800,1300 02/19 1300 AC 02/20 PO 0752 Montelukast Sodium 10 MG AT BEDTIME 02/15 2200 AC 02/19 PO 2140 Multivitamins 1 TAB DAILY 02/15 1000 AC 02/20 PO 0750 Nicotine 2 MG Q2 HRS NEEDED PRN 02/16 1845 AC 02/18 PO 1838 Thiamine HCl 100 MG DAILY 02/15 1000 AC 02/20 PO 0751 Trazodone HCl 50 MG AT BEDTIME NEED.. 02/14 2345 AC 02/19 PO 2139 Vital Signs Date Time Temp Pulse Resp B/P Pulse O2 O2 Flow FiO2 Ox Delivery Rate 02/20 0743 96.1 55 102/72 02/20 2048 98.0 75 16 131/78 02/20 2028 98.0 75 131/78 02/19 1548 69 144/69 02/19 1537 69 144/69 02/19 1248 84 128/78 02/19 1245 84 128 ASSESSMENT: Met with the patient today, who presented A&Ox4. Mood appeared mildly improved. Affect appeared calm and blunted. Eye contact was appropriate. Speech was normal in rate, tone and volume. Patient appeared less withdrawn on encounter today. He reported his concentration/memory were "better" on Ritalin 5mg BID, and reported now feeling able to participate in milieu groups secondary to not feeling "foggy " anymore. He denied feeling hopeless, helpless, or worthless. He denied active/ passive suicidal ideation, plans and intent. He denied homicidal ideation, plans and intent. He reported his depression as 4-5/10 (10 being the worst) and reported anxiety of 0/10 (10 being the worst). He reported his thought process appeared "clearer." Thought process was organized and linear. Thought content was appropriate. He denied auditory and visual hallucinations. There was no evidence of psychotic thought process, paranoid ideation, or lucius delusions. Patient reported tolerating all medication well and denied untoward medication effects. Reviewed with the patient adding a mood stabilizer such as tegretol or Abilify for mood stabilization. Patient was agreeable to trial abilify for mood stabilization. Reviewed the risk/benefit/SE profiles of Abilify, including metabolic risks and irreversable movement disorders. The patient verbalized understanding of all medication education and was agreeable to trial of Abilify. PLAN: 1. Start Abilify 5mg today, and reassess patient's response/tolerance to medication. Will increase tomorrow, if patient tolerates medication. 2. Continue Ritalin 5mg BID for concentration/memory. 3. Continue Lamictal 25mg daily and Gabapentin regimen. 4. Continue monitoring the patient on unit for safety, suicidal ideation, and mood. 5. Continue dispo planning per primary team.
--- NOTE | 2016-02-21 11:36 | SOCIAL WORKER PROG NOTE PSYCH ---
Social Work Progress Note Progress Note Patient continues to present with improved mood and denying suicidal thoughts. He presents with flat affect. He is attending groups on the unit and offers no complaints at present. I notified patient that I will be out of the office for the remainder of the week and will return on Friday after the holiday. I also informed him that we would like to continue his hospitalization through the rest of the week and the weekend and discharge him early next week. Patient responded appropriately to this information and was in agreement with discharge for Friday. Patient has intake for [facility] on Friday at 12:45pm. Patient aware and planning to arrange [employer] transportation today for next week.
[2016-02-21 12:24] VITALS: BP 131/68
[2016-02-21 16:05] VITALS: BP 127/87
[2016-02-21 19:59] VITALS: BP 132/77
[2016-02-22 07:55] VITALS: BP 127/77
[2016-02-22 12:08] VITALS: BP 130/70
--- NOTE | 2016-02-22 15:19 | CP SOUTH PROGRESS NOTE PSYCH ---
Psych (Inpt) Progress Note Progress Note Include the following elements, when applicable: Involvement in the active treatment of the patient with behavioral observations of the patient and the patient's response to the treatment. Review of the ongoing treatment process in the context of the treatment plan. Indication of how multi-disciplinary staff members are carrying out the treatment plan. Plans for future interventions and recommendations for revision of the treatment plan. Liaison with other physicians/providers. Progress Note: Medication list reviewed. Case and treatment plan discussed in team meeting. Staff reports that the patient isolates a lot. Had a bad conversation with his mother. Happy with medication changes, because he finds that his thinking is clearer. Interacting with peers. This week reportedly is the anniversary of brother's suicide. Discharge is planned for Friday. Trigylcerides are very high. Patient seen at 1:09 pm. Casually dressed WM. Reports "doing much better actually. Not really feeling the hopelessness. Feeling motivated again." Pleased with medication changes but reports for 1-1.5 hours taking Abilify, he has a headache, diffuse aches, fatigue and feels cold. He takes Tylenol to address these symptoms and they clear except for fatigue. He appears awake and alert. Affect is calm and blunted. Mood is good. Sad 1/10. Anxiety 0/10. Denies feeling hopeless, helpless, worthless or guilty. Denies active and passive SI, HI, AH, VH and PI. Ox3. Reports sleep is "poor, actually," but last night was the best here at 4 hours of sleep. He requested a repeat dose on trazodone and I ordered it. Appetite: good. Energy: good. Reports brother suicided on 01/31/15. IMPRESSION: Slow progress. Continue present treatment plan. Discharge is planned for Friday. I have requested superintendent house consult about high trigylcerides.
--- NOTE | 2016-02-22 15:49 | SOCIAL WORKER PROG NOTE PSYCH ---
Social Work Progress Note Progress Note Met with patient for one on one session, and while he seemed a little subdued he was completely in agreement with discharge plan, and stated that he was in agreement with plan that he follow-up with [facility] dual diagnosis program, and that he would be living/staying at [facility] where he has stayed before , and indicated that it was agreeable for him, even if not ideal. Patient had been homeless and despondent, but indicated that he does not feel suicidal at present, and that the admission has been very positive, and, hopefully, he can build on this. Patient stated that he was pleased about going to [facility], and will need to arrange transportation from [facility] [place]. patient responded to all questions, but he not elaborate at all, nor initiate any conversation. Continued stay was approved through february 27, 2016, with February 25 being the last covered day.
[2016-02-22 16:10] VITALS: BP 150/79
[2016-02-22 20:29] VITALS: BP 141/71
[2016-02-23 08:32] VITALS: BP 108/71
--- NOTE | 2016-02-23 11:27 | SOCIAL WORKER PROG NOTE PSYCH ---
Social Work Progress Note Progress Note Patient continues to exhibit flat affect. He does, however, deny suicidal ideation at this time. He does exhibit some positive hope for future, with plan to go to [facility], and be at [facility], Where he has stayed before. Called [facility] to see if he could possibly stay there sooner than the planned start date of . Also wanted to speak with coordinator to see if he in fact was set for 02-27-16. She is off this week, but tried to get in touch with her sheet mill supervisor, Keely Curry, at [phone], extension [phone]. Patient is stable and would be able to be discharged from hospital, if he has place to stay
[2016-02-23 12:07] VITALS: BP 142/58
--- NOTE | 2016-02-23 13:18 | SOCIAL WORKER PROG NOTE PSYCH ---
Social Work Progress Note Progress Note Patient states that he does not feel ready for discharge, because he was concerned about whether or not the Abilfy will be o k for him; plus, more importantly, he needs to go directly to [facility] from in-patient unit so that he will be able to arrange the transportation for [employer]. Patient appeared very worried when I talked to him about discharging earlier than the planned Friday02-27-16. The reasons he gave gave have some merit, but not insurmountable. Have not been able to talk to any staff at [place], so this may be moot point as of now. Have made several attempts to reach the clinical supervisor rose grading there, with no success.
--- NOTE | 2016-02-23 13:20 | CP SOUTH PROGRESS NOTE PSYCH ---
Psych (Inpt) Progress Note Progress Note Include the following elements, when applicable: Involvement in the active treatment of the patient with behavioral observations of the patient and the patient's response to the treatment. Review of the ongoing treatment process in the context of the treatment plan. Indication of how multi-disciplinary staff members are carrying out the treatment plan. Plans for future interventions and recommendations for revision of the treatment plan. Liaison with other physicians/providers. Progress Note: [I discussed this patient's progress to date, current mental status, treatment process in the context of the treatment plan, and discharge planning with staff/ team in the daily morning inpatient team meeting. I also met with the patient myself in individual session.] SUBJECTIVE: "I'm doing ok." OBJECTIVE: Current Medications Sig/Courtney Start time Last Medication Dose Route Stop Time Status Admin Acetaminophen 500 MG Q6P PRN 02/14 234 AC 02/22 PO 1152 Al Hydroxide/Mg 30 ML Q4-6 PRN PRN 02/14 2345 AC Hydroxide PO Albuterol Sulfate 2 PUF Q4-6 PRN PRN 02/15 0103 AC 02/15 INH 0542 Aripiprazole 5 MG 0800 02/20 1045 AC 02/22 PO 0819 Folic Acid 1 MG DAILY 02/15 1000 AC 02/21 PO 0750 Gabapentin 800 MG 02/15 220 AC 02/21 PO 2158 Gabapentin 400 MG 1800 02/15 1800 AC 02/21 PO 1900 Gabapentin 400 MG 1200 02/15 1200 AC 02/22 PO 1152 Gabapentin 400 MG 0802/15 0800 AC 02/22 PO 0819 Hydroxyzine HCl 50 MG Q6-PRN PRN 02/14 2345 AC 02/18 PO 1220 Lamotrigine 25 MG 02/15 1400 AC 02/22 PO 0819 Magnesium Hydroxide 30 ML AT BEDTIME PRN 02/14 2345 AC PO Melatonin 5 MG AT BEDTIME 02/15 2200 AC 02/21 PO 2158 Methylphenidate HCl 5 MG 0800,1300 02/19 1300 AC 02/22 PO 1152 Montelukast Sodium 10 MG AT BEDTIME 02/15 2200 AC 02/21 PO 2158 Multivitamins 1 TAB DAILY 02/15 1000 AC 02/21 PO 0750 Nicotine 2 MG Q2 HRS NEEDED PRN 02/16 1845 AC 02/18 PO 1838 Thiamine HCl 100 MG DAILY 02/15 1000 AC 02/21 PO 0750 Trazodone HCl 50 MG AT BEDTIME NEED.. 02/14 2345 AC 02/21 PO 2332 Vital Signs Date Time Temp Pulse Resp B/P Pulse O2 O2 Flow FiO2 Ox Delivery Rate 02/22 1207 64 142/58 02/22 0832 96.6 61 108/71 02/21 2029 98.1 67 141/71 02/21 1610 71 150/79 ASSESSMENT: Met with the patient today, who appeared A&Ox4. Speech was normal in rate,tone and volume. Eye contact was appropriate. Affect was chan in range compared to prior encounters. He reported continued "good" energy, and interacting more in milieu groups with peers. Reported his mood as "ok." He reported concentration/ memory remain improved on Ritalin 5 mg BID. Continued to report mild depression 3-4/10, and anxiety of 0/10. He reported feeling somewhat worried related to securing [employer] transportation for follow-up with [facility]. The patient was reassured that will assist him in arranging this service. The patient reported some feelings of hopelessness and helplessness, he denied feeling worthless. He reported improved sleep last evening with repeat dose of Trazodone. Appetite remains good. Thought process was organized and linear. There was no evidence of paraoid ideation or lucius delusions. Patient denied auditory and visual hallucinations. There was no evidence of symptoms of ozzie/ hypomania. He reported reduction in headache, diffuse aches, fatigue and feeling of coldness since starting Abilify, and associated this to his body becoming more tolerant of medication. He reported these mild symptoms are tolerable and that he has been utilizing prn Tylenol for aches. He is agreeable to continue taking medication. Discussed option of changing Abilify to PM dosing, due to previous report yesterday of fatigue, however he elected to keep dosing in the AM, as symptom has lessened. Discussed with the patient potential of increasing Abilify over the weekend for further mood stabilization if he continues to tolerate. The patient was agreeable to recommendation. AIMS=0. PLAN: 1. Conitnue monitoring the patient on unit for safety, suicidal ideation, and mood. 2. Continue current medications, and current dose of Abilify for now; consider increase in Abilify over the weekend for further mood stabilization if patient continues to tolerate. 3. Lovaza 1g BID started by Dr. Bjorn Sal for elevated trigylcerides. 4. Dispo planning per primary team.
[2016-02-23 15:42] VITALS: BP 114/65
[2016-02-23 19:42] VITALS: BP 131/70
[2016-02-24 08:20] VITALS: BP 130/90
[2016-02-24 08:33] VITALS: BP 132/90
[2016-02-24 12:12] VITALS: BP 150/73
--- NOTE | 2016-02-24 12:58 | CP SOUTH PROGRESS NOTE PSYCH ---
Psych (Inpt) Progress Note Progress Note Include the following elements, when applicable: Involvement in the active treatment of the patient with behavioral observations of the patient and the patient's response to the treatment. Review of the ongoing treatment process in the context of the treatment plan. Indication of how multi-disciplinary staff members are carrying out the treatment plan. Plans for future interventions and recommendations for revision of the treatment plan. Liaison with other physicians/providers. Progress Note: Medication list reviewed. Patient known to me from my recently having rounded on him. Case discussed with nursing staff. Nurse reported that the patient has been visible on the unit. Quiet and cooperative. Apparently refusing thiamine, folate and multivitamin, so I will discontinue them. Patient seen at 10:26 AM. He was playing cards with peer but got up and met with me in the office. Reports doing all right. Reports that he definitely slept better. Seems pleased with trazodone. Affect is calm and blunted. Dr. Sal started Lovaza. Mood is good. Rates sad mood 1/10 and anxiety 0/10. Denies feeling hopeless, helpless, worthless or guilty. Denies active and passive suicidal ideation. Denies homicidal ideation. Denies auditory and visual hallucinations and paranoid ideation. Reports sleep is better. Appetite is good. Energy is good. Tolerating medications well. Whereas he reported having side effects from Abilify for about an hour to an hour and a half after dosing, he is now experiencing fewer of these side effects. IMPRESSION: Slow progress. Continue present treatment plan.
[2016-02-24 15:56] VITALS: BP 141/77
[2016-02-24 19:51] VITALS: BP 146/95
[2016-02-25 08:04] VITALS: BP 126/66
--- NOTE | 2016-02-25 12:07 | CP SOUTH PROGRESS NOTE PSYCH ---
Psych (Inpt) Progress Note Progress Note Include the following elements, when applicable: Involvement in the active treatment of the patient with behavioral observations of the patient and the patient's response to the treatment. Review of the ongoing treatment process in the context of the treatment plan. Indication of how multi-disciplinary staff members are carrying out the treatment plan. Plans for future interventions and recommendations for revision of the treatment plan. Liaison with other physicians/providers. Progress Note: Case discussed with RN, who reported that the patient slept in group room because roommate was noisy during sleep. Patient seen at 10:10 a.m. Was playing chess with peer before meeting with me. Feels well. Has no complaints. Reports Abilify side-effects seem to have decreased. Has a toothache and reports using Tylenol. Affect is calm and blunted. Mood is good. Sad 1/10. Anxiety 0/10. Denies feeling hopeless, helpless, worthless or guilty. Denies active and passive SI, HI, AH, VH and PI. Reports he slept pretty well. Reports appetite and energy are good. Denies mood lability. Wishes to keep Abilify at current dose. Reports only side- effect now is fatigue that starts around dinnertime. Appears awake and alert. IMPRESSION: Slow progress. Continue present treatment plan.
[2016-02-25 12:20] VITALS: BP 133/73
[2016-02-25 15:30] VITALS: BP 126/67
[2016-02-25 20:14] VITALS: BP 140/77
[2016-02-26 07:33] VITALS: BP 149/77
[2016-02-26 12:07] VITALS: BP 135/74
--- NOTE | 2016-02-26 14:27 | CP SOUTH PROGRESS NOTE PSYCH ---
Psych (Inpt) Progress Note Progress Note Include the following elements, when applicable: Involvement in the active treatment of the patient with behavioral observations of the patient and the patient's response to the treatment. Review of the ongoing treatment process in the context of the treatment plan. Indication of how multi-disciplinary staff members are carrying out the treatment plan. Plans for future interventions and recommendations for revision of the treatment plan. Liaison with other physicians/providers. Progress Note: Case and treatment plan discussed in team meeting. Staff reports that the patient has been doing okay. He has been out in the milieu. Interact with peers. Affect flat. Patient seen at 10:15 AM. Reports he is alright. Affect is calm and blunted. Mood is good. Rates sad mood 1/10 and anxiety 0/10. Denies feeling hopeless, helpless, worthless or guilty. Denies active and passive suicidal ideation. Denies homicidal ideation. Denies auditory and visual hallucinations and paranoid ideation. Describes sleep, appetite and energy as good. Patient plans to resume Concerta after discharge and he is concerned about a possible rise in his blood pressure. I advised him to monitor blood pressure after he resumes Concerta. Tolerating medications well, without complaint. Patient plans to go to [facility]. He would like the [facility] at [facility]. IMPRESSION: Slow progress. Continue present treatment plan. Anticipate discharge tomorrow.
--- NOTE | 2016-02-26 15:09 | SOCIAL WORKER PROG NOTE PSYCH ---
See Addendum Social Work Progress Note Progress Note Patient was in a talkative, upbeat mood, and feekls ready for discharge which is sceduled for tomorrow to [facility] and to [facility], where he has an intake tomorrow at 12:45. Patient reports that the Abilify seems to be helping. He shows more affest, and denies any suicidal ideation. HE requested that someone speak with [facility] to get him into [facility] so that he could get more comprehensive treatment. I told him that I would put that in the notes. Patient is ready for d/c tomorrow.
[2016-02-26 15:46] VITALS: BP 124/69
[2016-02-26 19:51] VITALS: BP 139/79
[2016-02-27 07:59] VITALS: BP 127/87
--- NOTE | 2016-02-27 08:16 | CP SOUTH PROGRESS NOTE PSYCH ---
Psych (Inpt) Progress Note Progress Note Include the following elements, when applicable: Involvement in the active treatment of the patient with behavioral observations of the patient and the patient's response to the treatment. Review of the ongoing treatment process in the context of the treatment plan. Indication of how multi-disciplinary staff members are carrying out the treatment plan. Plans for future interventions and recommendations for revision of the treatment plan. Liaison with other physicians/providers. Progress Note: [Chart, medications, and labs reviewed.I discussed this patient's progress to date, current mental status, treatment process in the context of the treatment plan, and discharge planning with staff/ team in the daily morning inpatient team meeting. I also met with the patient myself in individual session.] SUBJECTIVE: "My meds feel right." OBJECTIVE: Current Medications Sig/Courtney Start time Last Medication Dose Route Stop Time Status Admin Acetaminophen 500 MG Q6P PRN 02/14 2345 AC 02/23 PO 1819 Al Hydroxide/Mg 30 ML Q4-6 PRN PRN 02/14 2345 AC 02/24 Hydroxide PO 1322 Albuterol Sulfate 2 PUF Q4-6 PRN PRN 02/15 0103 AC 02/24 INH 1323 Aripiprazole 5 MG 02/20 1045 AC 02/26 PO 0816 Gabapentin 800 MG 02/15 220 AC 02/25 PO 2212 Gabapentin 400 MG 1800 02/15 1800 AC 02/25 PO 1733 Gabapentin 400 MG 1200 02/15 1200 AC 02/25 PO 1207 Gabapentin 400 MG 02/15 0800 AC 02/26 PO 0816 Hydroxyzine HCl 50 MG Q6-PRN PRN 02/14 2345 AC 02/18 PO 1220 Lamotrigine 25 MG 02/15 1400 AC 02/26 PO 0816 Magnesium Hydroxide 30 ML AT BEDTIME PRN 02/14 2345 AC PO Melatonin 5 MG AT BEDTIME 02/15 220 AC 02/25 PO 2212 Methylphenidate HCl 5 MG 0800,1300 02/19 1300 AC 02/26 PO 0816 Montelukast Sodium 10 MG AT BEDTIME 02/15 2200 AC 02/25 PO 2212 Nicotine 2 MG Q2 HRS NEEDED PRN 02/16 1845 AC 02/24 PO 1849 Wqkbs-0-Igmv Ethyl 1 GM 0800,02/22 1400 AC 02/26 Esters PO 0816 Trazodone HCl 50 MG AT BEDTIME NEED.. 02/14 2345 AC 02/25 PO 0003 Vital Signs Date Time Temp Pulse Resp B/P Pulse O2 O2 Flow FiO2 Ox Delivery Rate 02/26 0759 96.6 80 127/87 02/25 1951 97.9 68 139/79 02/25 1546 70 124/69 02/25 1207 71 135/74 ASSESSMENT: Met with the patient today on the date of discharge. Patient presented alert and oriented to person, place, time and situation. He reported feeling "good." Affect was full-range. Speech was normal in rate, tone and volume. He rated his depression 1/10 (10 being the worst), and his anxiety 0/10 (10 being the worst). He denied feeling hopeless, helpless, worthless and guilty. He reported having "good" energy level, concentration, sleep and appetite. He denied passive/active suicidal ideation, plans and intent. He reported protective factors of "myself" and "my sobriety." He denied homicidal ideation. He denied urges/craving to use alcohol. There was no evidence of paranoia, or of lucius delusions. He denied auditory and visual hallucinations. He reported feeling motivated to follow-up with [facility] intake today at 12:45PM. He reported feeling safe and ready for discharge. PLAN: 1. Discharge today. Patient to return to [facility] in [place], [place] and [facility] arranged. 2. Follow-up at [facility] today, at 12:45PM. 3. Abstain from all substances. Patient encouraged to attend AA meetings and to obtain a sponsor to support his recovery. 4. All discharge prescriptions were printed, reviewed and provided to patient on discharge. H/w Ritalin 5mg BID prescription was provided to patient, #28, NR. Patient verbalized understanding of all instruction. 5. Appoint[facility] card for [facility] was provided to patient for . 6. In the event of an emergency, call [phone]/go to nearest emergency department. Patient verbalized understanding of all instruction.
[2016-02-27] MEDS ORDERED: GABAPENTIN400 M2 PO (09:02)
[2016-02-27] MEDS ORDERED: RITALIN5 M2 PO (09:02)
--- NOTE | 2016-02-27 10:15 | DISCHARGE SUMMARY REPORT-PSYCH ---
Visit Information Visit Dates/Diagnosis' Admission Date: 02/15/16 Discharge Date: 02/27/16 Reason for Admission: Suicidal ideation, exacerbation in depression. Psy Discharge Primary Diag: Unspecified Bipolar Disorder Psy Discharge Secondary Diag: Alcohol use disorder, severe; PTSD by history; ADHD by history. Hospital Course Significant Lab Findings: Lab Triglycerides 509 mg/dL H 02/22/16 0553 02/15/16 EKG: Sinus rhythm, with rate of 55. JE=085. EYl=831. Course Complications: None. Consultations: The patient was seen for admission history and physical by Dr. Bjorn Sal. Please see his note for additional information. The patient was again consulted by Dr. Bjorn Sal for elevated triglycerides. Lovaza 1g BID was started by Dr. Bjorn Sal, Allergies: Coded Allergies: peanut (Severe, ANAPHYLAXIS 09/04/15) clams (ITCHING SWELLING 09/04/15) Uncoded Allergies: Whole Wheat. (Mild, GI upset/ cramping 02/18/16) Patient can eat process wheat(like bread) but not whole or unprocess Wheat. Hospital Course/TX Response: The patient was monitored on the unit for safety, mood, suicidal ideation, and alcohol withdrawal. He participated in multimodal treatments on the unit. He was started on an Ativan taper for alcohol detox which he tolerated well and successfully completed. Lamictal was started at 25mg every morning and Abilify was started at 5mg every morning for mood stabilization. Ritalin 5mg was started BID for impaired concentration and memory related to brain tumor removal in 2010 which exacerbated his symptoms of ADHD. Patient tolerated all medications well, and denied untoward medication effects on discharge. During the hospital course, the patient's mood and affect improved. Suicidal ideation remitted, and alcohol detox was completed. The patient refused to allow his family to be involved in his treatment and could not identify any supports to be involved in a family meeting while he was hospitalized. Collateral was obtained from his former outpatient psychiatrist at [facility] Dr. Rola Morin. For details on collateral, please see this technical writer's progress notes. The patient was agreeable to returning back to his former residence at [facility] in [place], [place] and was motivated to attend [facility]. [facility] for the patient to assist with transportation to/from [place], [place] to [place], [place] for after care treatment. An intake appointment at [facility] was scheduled on 02/27/16 at 12:45PM. The patient was advised to abstain from all substances and to attend AA meetings/obtain AA sponsor for support in sobriety. The patient was in favor of discharge plan. On the date of discharge, 02/27/16, the patient presented alert and oriented to person, place, time and situation. He reported feeling "good." Affect was full- range. Speech was normal in rate, tone and volume. Eye contact was appropriate. He rated his depression 1/10 (10 being the worst), and his anxiety 0/10 (10 being the worst). He denied feeling hopeless, helpless, worthless and guilty. He reported having "good" energy level, concentration, sleep and appetite. He denied passive/active suicidal ideation, plans and intent. He reported protective factors of "myself" and "my sobriety." He denied homicidal ideation. He stated and also believed he will not harm himself or others. He denied urges/ craving to use alcohol. There was no evidence of paranoia, or of lucius delusions. Thought process was organized, linear and goal-directed. Thought content was appropriate. He denied auditory and visual hallucinations. Insight and judgement were improved since initial [facility] admission. He reported feeling motivated to follow-up with [facility] intake on 02/27/16 at 12:45PM, and was in favor of [employer] service to assist him with transportation to/from [place] for after care treatment in [place]. He reported feeling safe and ready for discharge. Discharge HBIPS - Tobacco Use Treatment Offered Post DC Medications Offered: Script Given-See Med List Post DC Tobacco Treatment Plan: [facility] Program Appt Date: 03/06/16 Program Appt Time: 1600 - EtOH/Drug Use D/O Treatment Offered Post DC Medications Offered: Ref Med EtOH/Drug Use D/O Post DC EtOH/SubAbuse [place] Plan: [facility]use/[facility] Program Appt Date: 02/27/16 Program Appt Time: 1245 Metabolic Screening - Screen if on a Neuroleptic Medication - Metabolic screening should include: - Blood Pressure, BMI, Glucose or Hgb A1c, & a - Lipid profile from within the past 365 days. Metabolic Screening () Not Applicable, patient not on a neuroleptic. OR ([X]) Patient on a neuroleptic(s) . Enter below results for Glucose or Hemoglobin A1C, and lipid panel if obtained during the last 365 days. BMI: 27.200 Blood Pressure: 137/76 Laboratory Results (If applicable): Lab Cholesterol 162 MG/DL 02/22/16 0553 Cholesterol/HDL Ratio 3 % 02/22/16 0553 Glucose 85 mg/dL 02/15/16 2100 HDL Cholesterol 49 mg/dL 02/22/16 0553 LDL Cholesterol, Calc ND MG/DL 02/22/16 0553 Triglycerides 509 mg/dL H 02/22/16 0553 Discharge Instructions General Discharge Information Discharge Medications: Discharge Medications- (Dose, route, freq, indication): START taking these NEW Home Medications: Gabapentin Dose: ORAL, SEE INSTRUCTIONS Qty: 70 Printed (Gabapentin) 400 MG 400 Milligram for anxiety/movement Refills: 0 CAPSULE disorder Take 1 capsule(400mg)by mouth at 8AM,12PM,and 6PM.Take 2 capsules (800mg) at 10PM. Last Taken:02/27/16 Time:08 Methylphenidate HCl Dose: ORAL, 0800,1300 for Qty: 28 Sent to (Ritalin) 5 MG 5 Milligram memory/concentration Refills: 0 Pharm 1 TABLET Take 1 tablet by mouth at 8AM and 1PM. Last Taken:02/27/16 Time:08 Albuterol Sulfate Dose: Inhale through mouth, Qty: 1 Printed (Ventolin Hfa) 90 2 Puff EVERY 4-6 HOURS Refills: 0 MCG HFA.AER.AD NEEDED as needed for SHORTNESS OF BREATH Take 2 puffs inhalation every 4 to 6 hours as needed for shortness of breath. Last Taken:02/25/16 Time:1323 Nicotine Dose: ORAL, EVERY 2 HOURS Qty: 30 Printed (Nicorelief) 2 MG 2 Milligram NEEDED as needed for Refills: 0 GUM smoking craving Last Taken:02/25/16 Time:1841 [place]-3 Acid Ethyl Dose: ORAL, 0800,2200 for High Qty: 28 Printed Esters (Lovaza) 1 1 Gram triglycerides Refills: 0 GRAM CAPSULE Last Taken:02/27/16 Time:0816 Aripiprazole Dose: ORAL, DAILY @8 AM for Qty: 14 Printed (Abilify) 5 MG 5 Milligram mood stabilization Refills: 0 TABLET Take 1 tablet by mouth every morning. Last Taken:02/27/16 Time:815 Montelukast Sodium Dose: ORAL, AT BEDTIME for Qty: 14 Printed (Montelukast Sodium) 10 Milligram allergies Refills: 0 10 MG TABLET Take 1 tablet by mouth at bedtime. Last Taken:02/26/16 Time:2211 Melatonin Dose: ORAL, AT BEDTIME for Qty: 14 Printed (Melatonin) 5 MG 5 Milligram insomnia Refills: 0 TABLET Take 1 tablet by mouth at bedtime. Last Taken:02/26/16 Time:2211 Lamotrigine Dose: ORAL, DAILY @8 AM for Qty: 14 Printed (Lamictal) 25 MG 25 Milligram MOOD STABILIZATION Refills: 0 TABLET TAKE 1 TAB BY MOUTH EVERY MORNING. Last Taken:02/27/16 Time:08 All discharge prescriptions were printed, reviewed and provided to patient on 02/27/16. H/w prescription for Methylphenidate 5mg BID provided to patient for ADHD, #28, NR. CONTINUE taking these Home Medications: Melatonin (Melatonin) 5 Dose: ORAL, as needed for MG TABLET 1 Tablet SLEEP Last Taken:02/26/16 Time:2211 Multiple Neuroleptics: (X) Not Applicable OR Document below three failed attempts at monotherapy, or a plan to taper to monotherapy, or augmentation of Clozapine. () Patient's Diet: Regular. Patient's Activity: No restrictions. DC Disposition: Patient to return to [facility] in [place], [place]. Recommendations: Patient was advised to please take medications. He was advised to abstain from all substances to to attend AA meetings/obtain AA sponsor to support him in sobriety. He was advised to follow-up with [facility] for smoking cessation on 03/06/16 at 4PM, and was provided with program card. He was advised to attend [facility] intake on 02/27/16 at 12:45PM. Patient was advised to call [phone]/go to nearest emergency department in the event of an emergency. The patient verbalized understanding of all instructions. Referred To: [facility] [address] [place] [address] [phone] Intake scheduled on 02/27/16 at 12:45PM [address] [address] [phone] To return on 02/27/16. [facility] [address] [place] [address] (t)[phone] Group scheduled on 03/06/16 at 4PM. Copies To: [facility]; [facility]
[2016-02-27] MEDS ORDERED: VENTOLIN HFA18 GM INH (10:38)
[2016-02-27] MEDS ORDERED: ABILIFY5 M1 PO (10:38)
[2016-02-27] MEDS ORDERED: LAMICTAL25 M1 PO (10:39)
[2016-02-27] MEDS ORDERED: MONTELUKAST SOD10 M1 PO (10:40)
[2016-02-27] MEDS ORDERED: MELATONIN5 M7 PO (10:40)
[2016-02-27] MEDS ORDERED: LOVAZA1 G1 PO (10:41)
[2016-02-27] MEDS ORDERED: NICORELIEF2 MG PO (10:41)
[2016-02-27 12:14] VITALS: BP 137/76
--- NOTE | 2016-02-27 14:02 | SOCIAL WORKER PROG NOTE PSYCH ---
Social Work Progress Note Progress Note Patient to discharge the hospital today. Patient denies SI/HI/AH/VH today and reports feeling safe to discharge the hospital today. Patient plans to return back to [facility] in [place], [place]. Patient has confirmed with them that his bed is still available. Patient has intake today at [facility] at 12:45pm. Patient plans to attend [facility] with and reside in [place] and has confirmed with [employer] that they will be able to provide him fernanda passes for the month after speaking with his clinician in [facility].
--- NOTE | 2016-02-27 16:57 | IP INCIDENTAL NOTE PSYCH ---
Incidental Note Notation: Spoke to pharmacist Ismael from outpatient pharmacy, where patient filled discharge prescriptions. Per pharmacist, patient was provided with 2 days worth of prescribed gabapentin as the patient's insurance would not cover cost of refill until 02/29/16.
== END 2016-02-27 13:00 | DRG 753 ==
LOC: ERH 18:29 → CP SOUTH 22:52 → ERHI 22:52 → CP SOUTH 23:44
PROVIDERS: Emergency Medicine; Registered Nurse Psychiatric/Mental Health; ADMIT Psychiatry & Neurology Psychiatry
DX: F31.9 Bipolar disorder, unspecified (principal); Z72.89 Other problems related to lifestyle; F43.10 Post-traumatic stress disorder, unspecified; F90.9 Attention-deficit hyperactivity disorder, unspecified type
CPT/HCPCS: 36415; 93005; 93010; G0479; G0480; J3490

== ENCOUNTER 2017-04-18 10:37 | Observation (INO) | payer OTHER ==
[~2017-04-18] VITALS: Ht 180.3 cm; Wt 83.0 kg
[~2017-04-18 10:37] MED LIST changes: +ABILIFY5 M1 PO; +BENADRYL25 MG PO; +GABAPENTIN400 M2 PO; +LAMICTAL25 M1 PO; +LOVAZA1 G1 PO; +MELATONIN5 M7 PO; +MONTELUKAST SOD10 M1 PO; +NEURONTIN800 M2 PO; +NICORELIEF2 MG PO; +RITALIN5 M2 PO; +VENTOLIN HFA18 GM INH
--- NOTE | 2017-04-18 10:58 | ED PSYCHIATRIC COMPLAINT ---
See Addendum History of Present Illness General Chief Complaint: ETOH/Drug Related Complaint Stated Complaint: ETOH/LAC TO FINGER Source: patient Exam Limitations: poor historian, intoxication Vital Signs & Intake/Output Vital Signs & Intake/Output Vital Signs Date Time Temp Pulse Resp B/P B/P Pulse O2 O2 Flow FiO2 Mean Ox Delivery Rate 04/19 1317 98.0 86 18 131/98 99 Room Air 04/19 1316 98.0 86 18 131/98 04/19 0819 97.8 90 18 122/80 99 Room Air 04/19 0617 98.1 69 18 108/80 99 Room Air 04/19 0615 98.1 69 18 108/80 04/19 0416 97.7 75 18 102/78 04/19 0416 97.7 75 18 102/78 98 Room Air 04/19 0228 98.5 75 18 108/90 04/19 0228 98.5 75 18 108/90 98 Room Air 04/19 0012 98.0 88 18 152/95 04/19 0012 98.0 88 18 152/95 98 Room Air 04/18 2210 97.9 114 20 140/90 98 04/18 2135 96.8 74 16 121/72 04/18 2100 96.8 16 16 121/72 98 Room Air ED Intake and Output 04/19 0000 04/18 1200 Intake Total 1500 Output Total Balance 1500 Intake, Oral 1500 Allergies Coded Allergies: peanut (Severe, ANAPHYLAXIS 09/04/15) wheat (Mild, WHOLE WHEAT - GI UPSET/CRAMPING 01/09/17) PATIENT CAN EAT PROCESS WHEAT (LIKE BREAD) BUT NOT WHOLE OR UNPROCESS WHEAT clams (ITCHING SWELLING 09/04/15) Reconcile Medications Aripiprazole (Abilify) 5 MG TABLET 5 MG PO 0800 mood stabilization Take 1 tablet by mouth every morning. Gabapentin 400 MG CAPSULE 400 MG PO SEE ADMIN CRITERIA anxiety/movement disorder Take 1 capsule(400mg)by mouth at 8AM,12PM,and 6PM.Take 2 capsules (800mg) at 10PM. Methylphenidate HCl (Methylphenidate ER) 54 MG TAB.ER.24 1 TAB PO QAM MENTAL HEALTH (Reported) Triage Nurses Notes Reviewed? yes HPI: Patient presents for evaluation status post argument with his mother who then called 911. The patient himself states he does not know why he is here in the emergency department. He has no specific complaint at this time but does admit to suicide ideation without plan. Patient also admits to Alcohol intake. (Camilla HERNANDEZ,Maik Jain) Past History Travel History Traveled to [place] past 21 day No Medical History Any Pertinent Medical History? 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 No (Camilla HERNANDEZ,Maik Jain) Review of Systems Review of Systems Constitutional: Reports: no symptoms. EENTM: Reports: no symptoms. Respiratory: Reports: no symptoms. Cardiovascular: Reports: no symptoms. GI: Reports: no symptoms. Genitourinary: Reports: no symptoms. Musculoskeletal: Reports: no symptoms. Skin: Reports: lesions. Neurological/Psychological: Reports: no symptoms. Hematologic/Endocrine: Reports: no symptoms. Immunologic/Allergic: Reports: no symptoms. All Other Systems: Reviewed and Negative (Camilla HERNANDEZ,Maik Jain) Physical Exam Physical Exam General Appearance: see below Neurological/Psychiatric: see below Comments: Gen.: Well-nourished, well-developed, no acute respiratory distress. Head: Normocephalic, atraumatic. Eyes: Normal inspection bilaterally Ears: Normal inspection bilaterally Nose: Normal inspection Throat/mouth : Moist mucosa Face: slight dried blood on right cheek Neck: Supple, full range of motion, no goiter Heart: Regular rate and rhythm, no murmurs rubs or gallops Lungs: Clear to auscultation bilaterally with normal air entry Chest: Nontender Back: Normal range of motion Abdomen: Soft, nontender, nondistended, normal bowel sounds Extremities: Normal range of motion grossly, equal radial pulses, no cyanosis clubbing or edema, left hand: superfiscial linear abrasions of the left index finger volarly Neurologic: Cranial nerves grossly intact, speech is clear Skin: warm and dry Psychiatric: Calm, cooperative, no apparent delusions or hallucinations SAD PERSONS Done? deferred to crisis (Camilla HERNANDEZ,Maik Jain) Progress Differential Diagnosis: poor impulse control, personality disorder, depression, anxiety, intoxication, withdrawal, drug use, lacerations, infection, tendon injury Plan of Care: Orders Procedure Date/time Status Regular Diet 04/19 B Active URINE DRUGS OF ABUSE 04/[address] in observation 04/18 1621 Active Patient Data 04/18 1621 Active CIWA 04/18 1255 Active Intake & Output 04/18 1128 Active Current Medications Sig/Courtney Start time Last Medication Dose Stop Time Status Admin Gabapentin 400 MG QPM 04/19 2200 AC (Neurontin) Aripiprazole 5 MG DAILY 04/19 1000 AC 04/19 (Abilify) 1318 Gabapentin 400 MG TID 04/19 1000 AC 04/19 (Neurontin) 1318 Lorazepam 2 MG Q8P PRN 04/18 2345 AC 04/19 (Ativan) 0005 Laboratory Tests 04/19/17 1255: Urine Opiates Screen < 100.00, Methadone Screen < 40, Barbiturate Screen 546 H, Ur Phencyclidine Scrn < 6.00, Amphetamines Screen < 100, U Benzodiazepines Scrn < 85, Urine Cocaine Screen < 50, Urine Cannabis Screen 10.20 (Camilla HERNANDEZ,Maik Jain) Hand-Off Endorsed To: Maik Krause DO Endorsed Time: 0700 Pending: consult (Leilani HERNANDEZ,Shoaib Junior) Departure Departure Disposition: STILL A PATIENT Condition: Stable Clinical Impression Primary Impression: Alcohol intoxication Qualifiers: Complication of substance-induced condition: uncomplicated Qualified Code: F10.920 - Alcohol use, unspecified with intoxication, uncomplicated Secondary Impressions: Suicide ideation Referrals: Patient Has No Primary Care Dr (PCP/Family) Departure Forms: Customer Survey General Discharge Information (Camilla HERNANDEZ,Maik Jain) Departure Comments 04/19/17 (Maik Krause DO) ED Attending Observation Initial Observation Note: I have seen and personally examined BARRIE NOVAK on 04/18/17 at 1929. I agree with the current emergency department documentation. The disposition (admission or discharge) is uncertain at this time, he needs a period of observation for the following reason(s): Patient is acutely intoxicated with alcohol and is potentially at risk of acute alcohol withdrawal, seizures, DTs. This patient will now require observation with serial CIWA scores for the possibility of acute alcohol withdrawal. If this patient does begin to experience acute alcohol withdrawal then admission should be considered. Otherwise the patient would be amenable to outpatient management. The ED Nurse caring for this patient has been personally informed as to what the patient is being observed for. (Camilla HERNANDEZ,Maik Jain) Initial Observation Note: I agree with the current emergency department documentation. The disposition (admission or discharge) is uncertain at this time, he needs a period of observation for the following reason(s): pt to be evaluated this AM for suicidality. The ED Nurse caring for this patient has been personally informed as to what the patient is being observed for. (Leilani HERNANDEZ,Shoaib Junior) Observation Re-Evaluation: I have reevaluated BARRIE NOVAK on 04/19/17 at 1350. The physical findings that support the continued need to observe this patient include [the patient remains with suicidal ideation. A bed search is currently underway by crisis for likely inpatient care]. (Maik Krause DO)
[2017-04-18] MEDS ORDERED: METHYLPHENIDATE54 M2 PO (11:04)
[2017-04-18 12:55] VITALS: BP 105/60
[2017-04-18 13:09] LABS: ABSOLUTE BASOPHIL COUNT 0 /CUMM (0.0-0.2); ABSOLUTE EOSINOPHIL COUNT 0.5 /CUMM (0.0-0.7); ABSOLUTE GRANULOCYTE CT 2.4 /CUMM (1.4-6.5); ABSOLUTE LYMPH COUNT 2.2 /CUMM (1.2-3.4); ABSOLUTE MONOCYTE COUNT 0.2 /CUMM (0.10-0.60); BASOPHIL % 0.4 % (0.0-2.0); EOSINOPHIL % 9.3 % (0-5); GRANULOCYTE % 45.3 % (42.2-75.2); HEMATOCRIT 42.6 % (42-52); MEAN CORPUSCULAR HGB 31.1 PG (27.0-31.0); MEAN CORPUSCULAR HGB CONC 35.7 G/DL (33.0-37.0); MEAN CORPUSCULAR VOLUME 87.2 FL (80.0-94.0); MEAN PLATELET VOLUME 8.8 FL (7.4-10.4); PLATELET COUNT 206 /CUMM (130-400); RBC DISTRIBUTION WIDTH 13.4 % (11.5-14.5); RED BLOOD CELL CT 4.89 /CUMM (4.70-6.10); WHITE BLOOD CELL COUNT 5.4 /CUMM (4.8-10.8)
[2017-04-18 21:35] VITALS: BP 121/72
--- NOTE | 2017-04-18 22:24 | ED PSYCH CRISIS CONSULTATION ---
See Addendum Crisis Consult Basic Assessment Date of Consult: 04/18/17 Responsible Person/Accompanied By: self Insurance Authorization: Insurance #1: Insurance name: BALDEMAR BRITTON Phone number: Policy number: [id number] Group number: Authorization number: ED Provider: Patient's ED Provider: Maik Sampson MD Primary Care Physician: Patient's PCP: Patient Has No Primary Care Dr PCP's Phone Number: Current Psychiatrist: Dr. Louie Dowell Chief Complaint: ETOH/Drug Related Complaint Patient's Quote: " I am feeling depressed" " I will take pills and go to sleep forever" Present Illness: Patient is a 31 year old single male BIBA after getting into a argument with his mother. Patient reports drinking (1) liter of vodka and provided a BAL of 239. Patient reports drinking a average of (1) pint of vodka daily. He reports feeling depressed and sad. Patient presented with suicidal ideation and a plan to take pills and overdose. The patient denied any homicidal ideation. The patient denied any auditory or visual hallucinations. Patient reported drinking last evening and having a black out. He reports throwing knives at the wall in his home. He presents with small laceration to his right finger. He reports having a brain tumor six years ago. He reports being depressed since the brain tumor. The patient reports previous treatment at [facility] for depression and suicidal ideation. The patient reports being treated at [facility] six months ago for depression and suicidal ideation. Patient's Address: [address] [place] [address] Other Phone Number: Who Do You Live With? Mother Family/Informants Interviewed: mother Galina Victoria [phone] Allergies - Coded Allergies: peanut (Severe, ANAPHYLAXIS 09/04/15) wheat (Mild, WHOLE WHEAT - GI UPSET/CRAMPING 01/09/17) PATIENT CAN EAT PROCESS WHEAT (LIKE BREAD) BUT NOT WHOLE OR UNPROCESS WHEAT clams (ITCHING SWELLING 09/04/15) Current Medications - Scheduled Medications Aripiprazole (Abilify) 5 MG TABLET 5 MG PO 0800 mood stabilization #14 TAB Prescribed by Marlen Calderon APRN on 02/27/16 Gabapentin 400 MG CAPSULE 400 MG PO SEE ADMIN CRITERIA anxiety/movement disorder #70 CAP Prescribed by Marlen Calderon APRN on 02/27/16 Methylphenidate HCl (Methylphenidate ER) 54 MG TAB.ER.24 1 TAB PO [facility] #30 (Reported) Entered as Reported by Brian Yoo on 04/18/17 1104 Laboratory Results: Laboratory Tests 04/18/17 1300: Anion Gap 18 H, Estimated GFR > 60, BUN/Creatinine Ratio 8.8, Glucose 104 H, Calcium 9.5, Total Bilirubin 0.2, AST 21, ALT 29, Alkaline Phosphatase 42, Total Protein 7.1, Albumin 4.6, Globulin 2.5, Albumin/Globulin Ratio 1.8, Lipase 52, CBC w Diff NO MAN DIFF REQ, RBC 4.89, MCV 87.2, MCH 31.1 H, MCHC 35.7, RDW 13.4 , MPV 8.8, Gran % 45.3, Lymphocytes % 40.9, Monocytes % 4.1, Eosinophils % 9.3 H, Basophils % 0.4, Absolute Granulocytes 2.4, Absolute Lymphocytes 2.2, Absolute Monocytes 0.2, Absolute Eosinophils 0.5, Absolute Basophils 0, Serum Alcohol 239.0 (Chago Lozoya) Past History Past Medical History EENT: NONE Respiratory: asthma Gastrointestinal: ESOPHAGITIS Hepatic: NONE Renal: NONE Musculoskeletal: NONE Psychiatric: alcohol dependence, anxiety, depression, NONTYPICAL MOOD DISORDER DEPRESSION, ANXIETY,ADD Endocrine: NONE Blood Disorders: NONE 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 wants to stay sober and do something with his life. r Physical Limitations (Interventions): S/p brain surgery and removal of part of brain Psychiatric Treatment History Psych Treatment Psychiatric Treatment Yes Inpatient Treatment Yes Outpatient Treatment No Location of Treatment [place], [place] Reason for Treatment Depression Diagnosis by History: Depression, Anxiety, ADD Substance Use/Abuse History Drug Use/Abuse Substances Used/Abused Yes Substance Used/Abused Alcohol First Use 16 Last Used yesterday How much used/taken 1 liter How often 1 pint daily of vodka For how long unknown Route of use oral Substance Abuse Treatment Substance Abuse Treatment Past Substance Abuse TX No Inpatient Treatment No Outpatient Treatment No (Chago Lozoya) Current Mental Status Mental Status Orientation: Person, Place, Situation Affect: Anxious, Depressed, Hopeless, Sad Speech: WNL Neuro-vegetative: Appetite Decreased, Energy Decreased Appearance Appearance- Dress/Hygiene: dressed in hospital clothing Behaviors Thought Process: WNL Thought Content: WNL Memory: Immediate Insight: Poor SI/HI Risk Assessment Past Suicidal Ideation/Attempts Yes Current Suicidal Ideation/Att Yes Past Homicidal Ideation/Att: No Current Homicidal Ideation/Attempts No Degree of Intent: Plan, States Intent Danger To: Self Gravely Disabled: Inability, Lack of Insight, Poor Impulse Control, Poor Judgment Risk Factors: SA/MH hospitalized, substance abuse, isolate/no social support, poor impulse control, male, limited support Lethality Ratin PTSD Checklist PTSD Score: PTSD Score: Response Value Disturbing memories,thoughts,images of stressful experience? Not at all 1 Disturbing dreams of stressful experience from past? Not at all 1 Suddenly acting/feeling as if reliving stressful experience? Not at all 1 Total 3 PTSD Done? patient declined ED Management Sitter: Yes Restraints: No (Chago Lozoya) DSM5/PS Stressors/Medical Prob Diagnosis' (DSM 5, Stressors, Medical): Major Depression, Unspecified F32.9 Current GAF: 25 Comments: Pt BIBA after argument with mother. Pt reports drinking (1) liter of vodka and reports drinking (1) pint of vodka daily. Pt reports feeling depressed with a plan to take pills to overdose. Pt reports being treated for suicide ideation in the past. This clinician consulted with Dr. Louie Dowell for the patient to be held over and re-evaluation. (Chago Lozoya) Departure Disposition Psych Medical Clearance Date: 04/18/17 Medically Cleared at: 2119 Time Started: 2119 Time Ended: 2219 Psychiatrist Consulted: Dr. Louie Dowell Date Disposition Established: 04/18/17 Time Disposition Established: 2219 Plan for Disposition - Modality: Hold over re-evaluation Rationale for Disposition: Pt BIBA after argument with mother. Pt reports drinking (1) liter of vodka and reports drinking (1) pint of vodka daily. Pt reports feeling depressed with a plan to take pills to overdose. Pt reports being treated for suicide ideation in the past. This clinician consulted with Dr. Louie Dowell for the patient to be held over and re-evaluation. Referrals Patient Has No Primary Care Dr (PCP/Family) (Rosales SHERIFF,Chago) Addendum Addendum SW met with the patient for the morning reassessment. The patient presented with depressed mood and flat affect. He states that his mood is "alright," and that he is not clear why he is here, noting "he blacked out." He states that his depression and anxiety are both an 8 out of 10, (10 being the most severe). He reports that he has been feeling helpless, hopeless, worthless and having difficulty with sleep and concentration. He denies any current AH, VH, HI. He reports having an issue with alcohol and states that he has been drinking about 1 pint daily. He continues to endorse suicidal ideations, with a plan to overdose on pills and states that he has access "to a lot of pills." He states that his last inpatient treatment was about 6 months ago, at [facility] and that he recently had an intake with [facility]. He resides with his mother, recently started a relationship, and has no children. He states that he is not working and is struggling financially. He is not able to identify any current stressors. He does believe that he needs an inpatient admission at this time. Case discussed with Dr. Dowell and he is in agreement with an inpatient admission at this time. (Omayra RAMACHANDRAN,Sabi)
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
[2017-04-19] VITALS (9 sets, daily range): BP systolic 102–152; BP diastolic 57–98
[2017-04-20 01:41] VITALS: BP 118/80
[2017-04-20 03:29] VITALS: BP 122/60
[2017-04-20 06:28] VITALS: BP 130/89
--- NOTE | 2017-04-20 13:39 | ED PSYCHIATRIST/APRN CONSULT ---
Psychiatrist/PIZZAMAKER ED Consult Assessment and Plan: ED psychiatric progress note Crisis SW notes reviewed. Assessed patient [id number] this morning. He reports ongoing depressed mood, ongoing thoughts of . Denies intent to harm himself currently in the emergency department. He denies AVH. He ruminates "I'm just so frustrated with everything." He does note that he felt as though he was having some alcohol withdrawal this morning. Has received 6 mg of Ativan over the past 24 hours since presentation to the emergency department. Vital signs were reviewed and generally wnl or with borderline tachycardia. He has largely been normotensive. CIWA at ~6AM today was 13. Mental status exam is notable for a disheveled-appearing man, fair eye contact, positive psychomotor retardation, monotonous speech, mood "frustrated, depressed ", affect was constricted, irritable, thought process was ruminative, content with suicidal ideation with plan to overdose, denies homicidal ideation, denies perceptual disturbance, cognition was grossly intact, insight and judgment was limited. Impression: Continues to demonstrate severely depressed mood with ongoing suicidal ideation with plan. Also seems to be manifesting some evidence of alcohol withdrawal syndrome. We will continue to attempt to arrange inpatient psychiatric hospitalization. Continue Abilify 5 mg as you're doing. Continue to observe and treat for worsening alcohol withdrawal.
[2017-04-20 16:07] VITALS: BP 131/78
[2017-04-20 18:04] VITALS: BP 148/96; BP 98/45
[2017-04-21 00:07] VITALS: BP 112/76
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
[2017-04-21 12:57] VITALS: BP 138/87
[2017-04-21] MEDS ORDERED: VENTOLIN HFA18 GM PO (14:11)
[2017-04-21] MEDS ORDERED: SINGULAIR10 M1 (14:11)
== END 2017-04-21 15:12 ==
LOC: ERH 10:37 → ERHI 16:21 → ENRESERV 22:33 → ENTRNSPT 04-21 12:34 → ERHI 04-21 12:34 → EDTRNSPTSTS 04-21 12:38 → CMPTRNSPT 04-21 12:47 → CP SOUTH 04-21 12:48 → ERHI 04-21 12:48
PROVIDERS: Emergency Medicine
DX: F10.129 Alcohol abuse with intoxication, unspecified (principal); R45.851 Suicidal ideations; J45.909 Unspecified asthma, uncomplicated; F39 Unspecified mood [affective] disorder; F32.9 Major depressive disorder, single episode, unspecified; F41.9 Anxiety disorder, unspecified; F98.8 Other specified behavioral and emotional disorders with onset usually occurring in childhood and adolescence; Z79.899 Other long term (current) drug therapy
CPT/HCPCS: 80307; G0378; G0463; G0480

== ENCOUNTER 2017-04-21 10:56 | Inpatient (IN) | payer OTHER ==
[~2017-04-21] VITALS: Ht 177.8 cm; Wt 82.7 kg
[~2017-04-21 10:56] MED LIST changes: +METHYLPHENIDATE54 M2 PO
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
[2017-04-21] MEDS ORDERED: VENTOLIN HFA18 GM PO (14:11)
[2017-04-21] MEDS ORDERED: SINGULAIR10 M1 (14:11)
[2017-04-21 16:05] VITALS: BP 133/70; BP 138/87
[2017-04-21 16:06] VITALS: BP 133/70
--- NOTE | 2017-04-21 16:40 | CPS PROVIDER INIT ASMT PSYCH ---
See Addendum Psychiatric Admission Orthopedic Brace Maker's Note Reviewed: Yes Patient Seen and Examined: Yes (Seen with medical student.) Identifying Information: 31 yo SWM with hx depression vs bipolar d/o, alcohol use disorder, hx PTSD, hx ADHD and hx cannabis use disorder, admitted today to [facility], referred by ER. Chief Complaint: SI in the context of being off most medications except Neurontin, being out of treatment, alcohol abuse, unemployment and low structure. Reaction to Hospitalization: "Not exactly pleased but I do feel that I'm doing something right at least. I know I wasn't before." History of Present Illness Onset of Illness: Stopped taking medications a few months ago. Was placed on lithium and became confused and was hospitalized. Started drinking. Tried to get into [facility] but had difficulty. Reports there is a 2 month intake process at [facility]. Sleep has been getting worse. Wants a job but has difficulty focusing. Drinking 1 pint vodka/day most days. 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 SI x past week. Mood has been pretty bad for a few months. Sleep: excessive x 3-4 months with multiple MNAs. Appetite: okay. Energy: low for a few months. Circumstances Leading to Admission: SI, alcohol use. Problem(s) Justifying Need for Admission: SI. Past Psychiatric History Past Diagnosis(es)- if any: Hx depression vs bipolar d/o, alcohol use disorder, hx PTSD, hx ADHD and hx cannabis use disorder. Past Precipitating Factors- if any: Homelessness, alcohol use disorder, exacerbation in anxiety and depression, SI, limited supports. - Include inpatient and outpatient treatment Treatment History: Outpatient: none. Inpatient ~10x: , [facility], [facility]. History of Suicide Attempts or Gestures Denies. Substance Abuse History: Last used chewing tobacco ~1 week ago. Alcohol as above. Denies MJ x ~1 year. Reports he took 1 Fioricet recently for a hangover. Allergies: Coded Allergies: peanut (Severe, ANAPHYLAXIS 09/04/15) wheat (Mild, WHOLE WHEAT - GI UPSET/CRAMPING 01/09/17) PATIENT CAN EAT PROCESS WHEAT (LIKE BREAD) BUT NOT WHOLE OR UNPROCESS WHEAT clams (ITCHING SWELLING 09/04/15) Home Med List: Off most medications since 2016. Gabapentin 300 mg 4x/day and 800 mg qhs. Albuterol prn. Singulair 10 mg daily. - Include any medical condition(s) that may - impact the patient's recovery/remission Past Medical History: Eosinophilic esophagitis. Left temporal lobe oligodendroglioma excised 6 years ago at [facility]. No hx seizures. Past History Medical History Neurological: meningitis EENT: NONE, allergies Cardiovascular: NONE Respiratory: asthma Gastrointestinal: GERD, ESOPHAGITIS Hepatic: NONE Renal: NONE Musculoskeletal: NONE Psychiatric: alcohol dependence, anxiety, depression, NONTYPICAL MOOD DISORDER DEPRESSION, ANXIETY,ADD Endocrine: NONE Blood Disorders: NONE Cancer(s): BRAIN CANCER SYSTEM SUPPORT DEVELOPER/Reproductive: NONE History of MRSA: No History of VRE: No History of CDIFF: No Influenza Vaccine: 12/25/16 Surgical History Surgical History: REMOVAL BRAIN TUMOR Psychiatric Family/Social Hx Family History Psychiatric Illness: Mother: ?dx. Substance Use: Denied. Suicides: Brother suicided in 2014. Social History Living Situation: Lives with mother in [place]. Significant Relationships (family/friends): Mother. Parents when patient was in 1st grade. Has occasional contact with father, who lives in [place]. Education: Some college. Vocation/Occupation: Last worked 6 years ago with father doing [employer]. Legal: Hx ~6 arrests for trespass and catalan larceny while in high school. 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 Healthly Behaviors Screening Tobacco Screening Tobacco Use from ED Docu: Quit <30 days ago (Chewing tobacco.) - If tobacco counseling indicated - the following topics are required. - #1 Recognizing dangerous situations. - #2 Coping Skills. - #3 Basic information about quitting. Status of Tobacco Cessation Counseling: #1, #2 AND #3 Completed Cessation Med Status Nicotine Gum Ordered Alcohol Screening - ETOH screen POS if BAL >=80 or Audit-C>= M4/F3 Audit-C Score from Diag Assess: 12 Blood Alcohol Level: Lab Serum Alcohol 239.0 MG/DL 04/18/17 1300 Alcohol Use Screening Results: Pos per Audit C &/or BAL - If ETOH counseling indicated - the following topics are required. - #1 Express concern about the patient's - drinking at unhealthy levels, include informing - of national norms for moderate drinking: - men <= 14 drinks/week, max 4 drinks/occasion - women <= 7 drinks/week, max 3 drinks/occasion - #2 Providing feedback, including linking alcohol to - negative physical effects (liver injury, hypertension) - negative emotional effects (relationship problems and - depression) - negative occupational consequences (reduced work - performance) - #3 Advising the patient to abstain from alcohol or - to drink below national norms for moderate drinking - (as listed above). Status of ETOH Use Counseling: #1, #2 AND #3 Completed. Metabolic Screening - Screen if on a Neuroleptic Medication - Metabolic screening should include: - Blood Pressure, BMI, Glucose or Hgb A1c, & a - Lipid profile from within the past 365 days. Metabolic Screening () Not Applicable, patient not on a neuroleptic. OR () Patient on a neuroleptic(s) . Enter below results for Hemoglobin A1C, and lipid panel if obtained during the last 365 days. BMI: 26.100 Blood Pressure: 133/70 Laboratory Results From [facility] (If applicable): [x] Ordered for tomorrow, 04/22/17. Exam and Plan Mental Status Examination Ambulation Status: WNL. Appearance: Thin WM in blue paper scrubs, with light herrera, sitting in a chair in NAD. Attitude towards examiner: Calm, polite and cooperative. Psychomotor activity: There is no psychomotor agitation/retardation. Behavior: WNL. Quality of speech: Speech is normal in volume, rate and tone. Affect: Flat and depressed. Mood: "Kind of flat." Sad 10. Anxiety /10. Feels hopeless, helpless and worthless. Denies feeling guilty. Suicidal Ideation: +SI, "mostly frustration." Denies plan. Denies intent. Gives a safety promise for here. Homicidal Ideation: Denies HI. Hallucinations: Denies AH and VH. Paranoid/Delusional Material: Denies PI and magical del angel. Difficulties with thought organization: Thinking is clear, logical and goal-directed. Insight: Limited. Judgment: Limited. Orientation: Ox3. Cognition: Grossly intact. Memory Function: Grossly intact. Estimate of intellectual functioning: Average. Assets/Strengths Patient Identified Assets/Strengths: "I don't know anymore. Good at programming some times, object-oriented source for games." Impression/Plan Impression and Plan: Patient is here with SI in the context of chronic, recurrent depression, alcohol use disorder, being out of treatment, being off most of his usual medications, being unemployed, having some conflict with mother, and loss of brother to suicide a few years ago. - Include all active medical diagnosis that require tx DSM 5 Diagnosis(es): Major depression, recurrent, severe. Alcohol use disorder. Hx excision of left temporal oligodendroglioma. Hx e osinophilic esophagitis. - Initial Tx Plan for Active Psych & Medical Conditions Treatment Plan: The patient will be monitored on the unit for safety, alcohol withdrawal and mood disorder. Alcohol detox protocol has been ordered. Neurontin has been continued. Abilify has been restarted. Patient may need an antidepressant or Lamictal. Additional information is needed from mother. Anticipate once clinically stable, that the patient will be discharged to home and mother and be referred to IOP. - Factors that would help patient function - in a less restrictive setting. Factors: No longer feeling suicidal.
[2017-04-21 19:48] VITALS: BP 132/77
[2017-04-21 19:51] VITALS: BP 132/77
[2017-04-22] VITALS (13 sets, daily range): BP systolic 112–136; BP diastolic 61–95
--- NOTE | 2017-04-22 11:56 | CP SOUTH PROGRESS NOTE PSYCH ---
Psych (Inpt) Progress Note Progress Note Include the following elements, when applicable: Involvement in the active treatment of the patient with behavioral observations of the patient and the patient's response to the treatment. Review of the ongoing treatment process in the context of the treatment plan. Indication of how multi-disciplinary staff members are carrying out the treatment plan. Plans for future interventions and recommendations for revision of the treatment plan. Liaison with other physicians/providers. Progress Note: Case and treatment plan discussed in team meeting. Staff reports that the patient is denying suicidal ideation. He has been in bed mostly since he got here. CIWA scores are unremarkable. Patient seen at 10:16 AM. He was asleep in bed but was easily awakened. He is dressed in hospital garb. He appears disheveled. He met with me in office. States he is tired and indicates that he didn't really sleep at all. States he tried to sleep. Appears mildly sedated. He reports Neurontin is still not dosed the way e was taking it at home and it should be 400 mg t.i.d. and 800 mg q.h.s. I have changed order to reflect this. Affect is flat to depressed. Mood is "kind of just flat and tired." Rates sad mood 7/10 and anxiety 5/10. Denies feeling hopeless, worthless or guilty. Does feel helpless. Denies active and passive suicidal ideation. Denies homicidal ideation. Denies auditory and visual hallucinations and paranoid ideation. Reports appetite is okay. Energy is low. Tolerating medications well, without complaint. I asked about contact with his mother, and he reports that he has not heard from his mother since he was in the emergency room. I asked about past antidepressant trials. He recalls being on Prozac in the past. VtagO indicates he was on nortriptyline in the past. I asked about past diagnosis of bipolar disorder and he doubts that he has bipolar disorder because he does not experience natural highs. IMPRESSION: Slow progress. Continue present treatment plan. Continues to require inpatient level of care. We will consider addition of an antidepressant or Lamictal if mood remains low after detox has progressed. Much of patient's fatigue likely relates to Ativan. I have changed CIWA to q4h.
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
--- NOTE | 2017-04-22 16:56 | SOCIAL WORKER PROG NOTE PSYCH ---
Social Work Progress Note Progress Note 3:45pm This telegraphic typewriter installer met with the patient. He discussed reason for current hospitalization: "I was drinking alot and I gotta quit." Patient stated that he would like to "be back on meds and in treatment." He expressed interest in returning to [facility], which he had attended in the past. He reported current SI, denied plan and stated that he feels safe on this unit. He agreed to immediately inform staff if feeling unsafe or having other concerns. He denied HI/AH/VH. Patient stated that he was not feeling well ("detox") and will meet with this telegraphic typewriter installer tomorrow.
[2017-04-23] VITALS (8 sets, daily range): BP systolic 111–138; BP diastolic 74–79
--- NOTE | 2017-04-23 13:23 | History & Physical ---
General Information and HPI MD Statement: I have seen and personally examined BARRIE NOVAK and documented this H&P. The patient is a 31 year old M who presented with a patient stated chief complaint of "I was drinking a lot and I gotta quit". Source of Information: patient, old records Exam Limitations: unable to give history History of Present Illness: 31-year-old white male states he would like to be back on his medications and treatment with his having suicidal ideations and has had history of depression and bipolar disorder, alcohol use. History of PTSD E disuse he has stopped taking his medications a few months ago having a lot of trouble since admitted for evaluation and restart medications Allergies/Medications Allergies: Coded Allergies: peanut (Severe, ANAPHYLAXIS 09/04/15) wheat (Mild, WHOLE WHEAT - GI UPSET/CRAMPING 01/09/17) PATIENT CAN EAT PROCESS WHEAT (LIKE BREAD) BUT NOT WHOLE OR UNPROCESS WHEAT clams (ITCHING SWELLING 09/04/15) Home Med list Albuterol Sulfate (Ventolin Hfa) 90 MCG HFA.AER.AD 2 PUF PO PRN ASTHMA ( Reported) Aripiprazole (Abilify) 5 MG TABLET 5 MG PO 0800 mood stabilization Take 1 tablet by mouth every morning. Gabapentin 400 MG CAPSULE 400 MG PO SEE ADMIN CRITERIA anxiety/movement disorder Take 1 capsule(400mg)by mouth at 8AM,12PM,and 6PM.Take 2 capsules (800mg) at 10PM. Methylphenidate HCl (Methylphenidate ER) 54 MG TAB.ER.24 1 TAB PO QAM MENTAL HEALTH (Reported) Montelukast Sodium (Singulair) 10 MG TABLET ASTHMA (Reported) Compliance With Home Meds: POOR Past History Travel History Traveled to [place] past 21 day No Medical History Neurological: meningitis EENT: NONE, allergies Cardiovascular: NONE Respiratory: asthma Gastrointestinal: GERD, ESOPHAGITIS Hepatic: NONE Renal: NONE Musculoskeletal: NONE Psychiatric: alcohol dependence, anxiety, depression, NONTYPICAL MOOD DISORDER DEPRESSION, ANXIETY,ADD Endocrine: NONE Blood Disorders: NONE Cancer(s): BRAIN CANCER 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 Home Review of Systems Review of Systems Constitutional: Reports: see HPI. Exam & Diagnostic Data Last 24 Hrs of Vital Signs/I&O Vital Signs Date Time Temp Pulse Resp B/P B/P Pulse O2 O2 Flow FiO2 Mean Ox Delivery Rate 04/23 1230 71 127/75 04/23 1212 71 127/75 04/23 0733 97.6 78 111/79 04/23 0732 97.6 78 111/79 04/22 2006 98.5 80 123/76 04/22 2001 98.5 80 123/76 04/22 1637 81 130/76 04/22 1603 81 130/76 Physical Exam General Appearance Alert, Oriented X3 Skin No Rashes, No Breakdown HEENT PERRLA, EOMI, Mucous Membr. moist/pink Neck Supple, No JVD, No thryomegaly, +2 Carotid Pulse wo Bruit, No LAD Lymphatic Axillary nl, Cervical nl Cardiovascular Regular Rate, No Murmurs Lungs Clear to Auscultation Abdomen Soft, No Tenderness, No Hepatospenomegaly Neurological Exam Findings: not tested patient was in bed Cranial Nerves II through XII: Intact Extremities No Cyanosis, No Edema Vascular Normal Pulses, Pulses Symmetrical Last 24 Hrs of Labs/Shane: Laboratory Tests 04/22/17 0639: Anion Gap 11, Hemoglobin A1c 5.0, Triglycerides 99, Cholesterol 165, LDL Cholesterol, Calc 93, HDL Cholesterol 53, Cholesterol/HDL Ratio 3, Free T4 0.79, Total T3 1.26, TSH &T3 &Free T4 Intrp 5.030 H Laboratory Tests 04/22/17 0639: Anion Gap 11, Hemoglobin A1c 5.0, Triglycerides 99, Cholesterol 165, LDL Cholesterol, Calc 93, HDL Cholesterol 53, Cholesterol/HDL Ratio 3, Free T4 0.79, Total T3 1.26, TSH &T3 &Free T4 Intrp 5.030 H Diagnostic Data ITS Data Unobtainable at this time Assessment/Plan As Ranked By This Provider Problem List: 1. Suicide ideation 2. Bipolar disorder with depression 3. Alcohol dependence with withdrawal Miscellaneous Miscellaneous Documentation Attending Case Discussed With: Yared HERNANDEZ,Shoaib Primary Care Physician: Patient Has No Primary Care Dr Patient sees these Specialists Psychiatry Level of Patient Care: [facility] Consults Needed: Consulting Specialty: Psychiatry Consulting Physician: Dr. Vail Reason for Consult: depression alcohol excess
--- NOTE | 2017-04-23 16:25 | SOCIAL WORKER PROG NOTE PSYCH ---
Social Work Progress Note Progress Note 1:58pm Dr. Vail and this rfp writer met with patient. He described his mood as "in the middle." He denied SI/HI/AH/VH. Patient reported that he was only able to sleep for a quarter of last night. He reported good appetite and energy. Patient expressed interest in attending [facility] and was agreeable to a family meeting with his mother (MARGARITA signed). Dr. Vail and patient discussed medications including questions and concerns. 3:32pm This rfp writer spoke with patient's mother, Galina Victoria, ([phone]) by phone. She stated that she was not willing to attend a family meeting and that the patient would not be allowed to return home. Ms. Victoria stated that the patient has not been compliant with medications and treatment and is concerned about his substance use. She feels that he needs a residential treatment program. She offered the names, [facility] and [facility], however does not believe that he would be willing to consider these programs due to the jew foundation. This rfp writer will review this conversation with the patient as well as the treatment team. This rfp writer met with patient following the telephone conversation with his mother. Patient was informed of this conversation. He reported feeling depressed, however, was not surprised by what his mother said, "she's always trying to get rid of me." Patient was willing to consider inpatient treatment/ rehab and will discuss this with this rfp writer tomorrow. For the evening, patient identified a plan to manage his depression/reaction by spending time in the milieu with his peers and utilizing staff for support. He stated that he would speak with the nurse about a prn for anxiety. Patient reported feeling SI ( "like it's not worth it anymore") but stated that he felt safe on this unit and would not act on the SI. He agreed to immediately inform nursing if feeling unsafe. This rfp writer informed Mahi Benjamin RN ([facility]) of the telephone conversation with the patient's mother as well as the conversation with the patient.
--- NOTE | 2017-04-23 17:06 | CP SOUTH PROGRESS NOTE PSYCH ---
Psych (Inpt) Progress Note Progress Note Include the following elements, when applicable: Involvement in the active treatment of the patient with behavioral observations of the patient and the patient's response to the treatment. Review of the ongoing treatment process in the context of the treatment plan. Indication of how multi-disciplinary staff members are carrying out the treatment plan. Plans for future interventions and recommendations for revision of the treatment plan. Liaison with other physicians/providers. Progress Note: Case and treatment team meeting. Staff reports that the patient endorses suicidal ideation. He was in bed all day yesterday but he was up and dressed this morning. Appearing flat and depressed. Patient seen at 1:48 PM with Ina Thurman LCSW. Patient was planning a card game with peers prior to meeting with us in office. Reports doing a little better. Appears awake and alert. Affect is calm and blunted. Reports feeling less anxious, "less like crap." Reports mood is in the middle. Rates sad mood 5/10 and anxiety 2/10. Denies feeling hopeless, helpless, worthless or guilty. Denies active and passive suicidal ideation. Denies homicidal ideation. Denies auditory and visual hallucinations and paranoid ideation. Reports sleep is still not that great. Reports he slept a quarter of the night after taking trazodone and melatonin. He agrees to increase trazodone dose to 150 mg nightly. Reports he has been on this dose in the past. Appetite is good. Energy is low. Tolerating medications well, without complaint. Now agreeing to a family meeting with his mother. IMPRESSION: Slow progress. Continue present treatment plan. A family meeting with mother will likely prove useful. TSH was high at 5.03. T3 and T4 were normal. We will check a repeat TSH tomorrow. Continues to require inpatient level of care. Anticipate likely discharge on Friday to home and mother with referral to [facility].
[2017-04-24] VITALS (8 sets, daily range): BP systolic 107–135; BP diastolic 60–88
--- NOTE | 2017-04-24 13:42 | SOCIAL WORKER PROG NOTE PSYCH ---
Social Work Progress Note Progress Note [facility] [employer] [id number] 1985 [place] [employer] [id number] Pended Authorization # Client Authorization # Type of Request [id number] CONCURRENT Date of Admission/ Start of Services Requested From Submission Date 04/21/2017 04/24/2017 04/24/2017
--- NOTE | 2017-04-24 17:29 | SOCIAL WORKER PROG NOTE PSYCH ---
Social Work Progress Note Progress Note 10:40am This mortgage underwriter met with patient. He described his mood as "ok right now." He denied SI at the time of this discussion. Patient maintained that he does not want to consider rehabs; he was agreeable to the [facility] in [place] and signed an MARGARITA, requesting that this mortgage underwriter send a referral. Patient denied HI/ AH/VH. He requested to end this discussion due to feeling tired. [facility] referral faxed to [phone] (PATRICIA contacted [facility] for fax number). The following documents were faxed: - History and Physical - Crisis Assessment - Initial Assessment - Medication List
--- NOTE | 2017-04-24 17:32 | CP SOUTH PROGRESS NOTE PSYCH ---
See Addendum Psych (Inpt) Progress Note Progress Note Include the following elements, when applicable: Involvement in the active treatment of the patient with behavioral observations of the patient and the patient's response to the treatment. Review of the ongoing treatment process in the context of the treatment plan. Indication of how multi-disciplinary staff members are carrying out the treatment plan. Plans for future interventions and recommendations for revision of the treatment plan. Liaison with other physicians/providers. Progress Note: Case and treatment plan discussed in team meeting. Staff reports that the patient is denying suicidal ideation. Staff reports that the patient seems to sleep-in. Went to groups yesterday and showed good participation. Mother does not want patient to return home and apparently does not want to come in for a family meeting. Patient seen at 3:30 PM. He was asleep in his room but got up and met with me in office. Reports things are all right. He appears sedated, likely from Ativan. Mood is not great. Reports having trouble with his mother. States she will take him home and will not come in for a meeting. Affect is calm and blunted. Rates sad mood 8/10. Rates anxiety 5/10. Denies feeling hopeless, helpless, worthless or guilty. Denies active and passive suicidal ideation. Denies homicidal ideation. Denies auditory and visual hallucinations and paranoid ideation. Reports sleep is not good, sleeping more. Appetite is good. Energy is low. Tolerating medications. Does not think he needs an inpatient rehab. He is open to going to a residential IOP program in [place]. Patient is asking to restart Concerta. IMPRESSION: Slow progress. Continue present treatment plan. Hopefully patient will show more energy as he completes detox on Friday. We will consider adding Ritalin, as Concerta is not on-formulary here. Anticipate likely discharge on Friday.
[2017-04-25] VITALS (7 sets, daily range): BP systolic 98–133; BP diastolic 57–77
--- NOTE | 2017-04-25 13:57 | SOCIAL WORKER PROG NOTE PSYCH ---
See Addendum Social Work Progress Note Progress Note 10:40am This functional tester typewriters met with patient. He described his mood as "low." When asked about SI, he stated that he is feeling "frustrated. It feels like nothing can be done." This functional tester typewriters and patient discussed housing. He was not interested in a long-term and was unable to identify any other alternatives. Patient stated that he would contact his mother. Patient was informed that clinical was faxed to the [facility]. He was not agreeable to referrals to rehab/inpatient programs. He agreed to consider it and discuss with peers/in group. Patient was encouraged to attend groups and avoid isolating in his room. He agreed and left this meeting to attend the group that was in session.
--- NOTE | 2017-04-25 15:36 | CP SOUTH PROGRESS NOTE PSYCH ---
Psych (Inpt) Progress Note Progress Note Include the following elements, when applicable: Involvement in the active treatment of the patient with behavioral observations of the patient and the patient's response to the treatment. Review of the ongoing treatment process in the context of the treatment plan. Indication of how multi-disciplinary staff members are carrying out the treatment plan. Plans for future interventions and recommendations for revision of the treatment plan. Liaison with other physicians/providers. Progress Note: Case and treatment plan discussed in team meeting. Staff reports that the patient is denying suicidal ideation. Isolates in bed. Not going to groups. Mother wants patient to go to an inpatient rehab. He wants to go to a sobering center. Mother will not accept the patient home. Patient seen at 1:03 PM. He was resting in bed prior to meeting with me in office. He is missing group. States he is not feeling great and he indicates this is because he does not have housing. Affect is calm and blunted to depressed. Mood is low. Rates sad mood 8/10 and anxiety 3/10. Denies feeling hopeless, worthless or guilty. Does feel helpless. Denies suicidal and homicidal ideation. Denies auditory and visual hallucinations and paranoid ideation. Reports his sleep is not great. Appetite is okay. Energy is low. Tolerating medications well. I advised patient to go to groups. Patient reports he was on Concerta 54 mg daily. Concerta is not on-formulary here. I will order Ritalin 10 mg twice daily at 8 AM and 12 noon. IMPRESSION: Slow progress. Continue present treatment plan. Detox will be completed shortly. Monitor response to Ritalin. Please increase Ritalin dose as clinically indicated. Housing remains problematic. Anticipate likely discharge on Friday.
[2017-04-26] VITALS (8 sets, daily range): BP systolic 117–138; BP diastolic 64–85
--- NOTE | 2017-04-26 10:56 | CP SOUTH PROGRESS NOTE PSYCH ---
Psych (Inpt) Progress Note Progress Note Include the following elements, when applicable: Involvement in the active treatment of the patient with behavioral observations of the patient and the patient's response to the treatment. Review of the ongoing treatment process in the context of the treatment plan. Indication of how multi-disciplinary staff members are carrying out the treatment plan. Plans for future interventions and recommendations for revision of the treatment plan. Liaison with other physicians/providers. Progress Note: Pt notes that he is "alight" with "OK" sleep. Denies SI or HI. No questions or concerns about meds. Very limited engagement. Current Medications Sig/Courtney Start time Last Medication Dose Route Stop Time Status Admin Acetaminophen 650 MG Q6P PRN 04/21 1200 AC PO Al Hydroxide/Mg 30 ML Q4-6 PRN PRN 04/21 1200 AC Hydroxide PO Albuterol Sulfate 2 PUF Q6P PRN 04/21 1500 AC INH Aripiprazole 5 MG DAILY@0800 04/22 0800 AC 04/26 PO 0800 Benztropine Mesylate 1 MG Q6P PRN 04/21 1200 AC 04/25 PO 0228 Benztropine Mesylate 1 MG Q6P PRN 04/21 1200 AC IM Gabapentin 400 MG 0800,1200,1700 04/22 1200 AC 04/26 PO 0800 Gabapentin 800 MG AT BEDTIME 04/21 2200 AC 04/25 PO 2136 Haloperidol 5 MG Q6P PRN 04/21 1200 AC 04/25 PO 0228 Haloperidol 5 MG Q6P PRN 04/21 1200 AC IM Lorazepam 0.5 MG ONCE 04/26 0000 DC PO 04/26 0001 Lorazepam 0.5 MG Q6H 04/25 0000 DC 04/25 PO 04/25 1801 1835 Lorazepam 2 MG Q6P PRN 04/21 1200 AC IM Lorazepam 2 MG Q2P PRN 04/21 1200 AC PO Lorazepam 1 MG Q2P PRN 04/21 1200 AC PO Magnesium Hydroxide 30 ML AT BEDTIME NEED.. 04/21 1200 AC PO Melatonin 10 MG .STK-MED ONE 04/25 2138 DC PO 04/25 213 Melatonin 10 MG AT BEDTIME NEED.. 04/21 1200 AC 04/25 PO 2139 Methylphenidate HCl 10 MG BID@0800,1200 04/25 1345 AC 04/26 PO 0759 Montelukast Sodium 10 MG AT BEDTIME 04/21 2200 AC 04/25 PO 213 Multivitamins 1 TAB DAILY@00 04/21 1200 AC 04/26 PO 08 Trazodone HCl 150 MG .STK-MED ONE 04/25 2138 DC PO 04/26 2139 Trazodone HCl 150 MG AT BEDTIME NEED.. 04/23 1400 AC 04/25 PO 213 Laboratory Tests 04/24 0643 Chemistry TSH (0.270 - 4.200 uIU/mL) 2.810 Vital Signs Date Time Temp Pulse Resp B/P B/P Pulse O2 O2 Flow FiO2 Mean Ox Delivery Rate 04/26 075 97.9 67 138/85 04/26 0750 97.9 67 138/85 04/25 1944 99.1 71 127/71 04/25 1935 99.1 71 127/71 04/25 1621 77 133/77 04/25 1621 77 133/77 04/25 1229 57 112/76 03 1215 57 112/76 MSE General appearance: good hygiene and grooming; Attitude: cooperative; Eye contact: appropriate; Movement: no psychomotor agitation or slowing; Speech: nl fluency, nl rate/rhythm, nl volume, nl prosody; Mood: "alright" Affect: irritable, flat, appropriate, constricted, non-labile, congruent; Thought process: linear and goal-directed; Thought content: denied SI or HI, no paranoid ideation; Perception: denied hallucinations- auditory, visual, does not appear to be responding to internal stimuli; I/J: limited A/P: Pt with MDD with SI now with slightly improved mood though withdrawn. -Continue current medication regimen -Encourage integration into the milieu
[2017-04-27] VITALS (7 sets, daily range): BP systolic 120–131; BP diastolic 71–78
--- NOTE | 2017-04-27 11:50 | CP SOUTH PROGRESS NOTE PSYCH ---
Psych (Inpt) Progress Note Progress Note Include the following elements, when applicable: Involvement in the active treatment of the patient with behavioral observations of the patient and the patient's response to the treatment. Review of the ongoing treatment process in the context of the treatment plan. Indication of how multi-disciplinary staff members are carrying out the treatment plan. Plans for future interventions and recommendations for revision of the treatment plan. Liaison with other physicians/providers. Progress Note: Pt notes that he slept much better last night. He played cards which he enjoyed yesterday. He requested increase in stimulant, which was deferred to primary provider, to "stay focused and remember things." Pt reviewed PMH of brain tumor at age 24yo. Pt denies SI or HI. Current Medications Sig/Courtney Start time Last Medication Dose Route Stop Time Status Admin Acetaminophen 650 MG Q6P PRN 04/21 1200 AC PO Al Hydroxide/Mg 30 ML Q4-6 PRN PRN 04/21 1200 AC Hydroxide PO Albuterol Sulfate 2 PUF Q6P PRN 04/21 1500 AC 04/27 INH 0437 Aripiprazole 5 MG DAILY@0800 04/22 0800 AC 04/27 PO 0751 Benztropine Mesylate 1 MG Q6P PRN 04/21 1200 AC 04/25 PO 0228 Benztropine Mesylate 1 MG Q6P PRN 04/21 1200 AC IM Gabapentin 400 MG 0800,1200,1700 04/22 1200 AC 04/27 PO 1136 Gabapentin 800 MG AT BEDTIME 04/21 2200 AC 04/26 PO 2141 Haloperidol 5 MG Q6P PRN 04/21 1200 AC 04/25 PO 0228 Haloperidol 5 MG Q6P PRN 04/21 1200 AC IM Lorazepam 2 MG Q6P PRN 04/21 1200 AC IM Lorazepam 2 MG Q2P PRN 04/21 1200 AC PO Lorazepam 1 MG Q2P PRN 04/21 1200 AC PO Magnesium Hydroxide 30 ML AT BEDTIME NEED.. 04/21 1200 AC PO Melatonin 10 MG AT BEDTIME 04/27 2200 AC PO Melatonin 10 MG .STK-MED ONE 04/26 2141 DC PO 04/26 2142 Melatonin 10 MG AT BEDTIME NEED.. 04/21 1200 DC 04/26 PO 2140 Methylphenidate HCl 10 MG BID@0800,1200 04/25 1345 AC 04/27 PO 1137 Montelukast Sodium 10 MG AT BEDTIME 04/21 2200 AC 04/26 PO 214 Multivitamins 1 TAB DAILY@0800 04/21 1200 AC 04/27 PO 0751 Trazodone HCl 200 MG AT BEDTIME 04/27 2199 AC PO Trazodone HCl 150 MG .STK-MED ONE 04/26 214 DC PO 04/26 2140 Trazodone HCl 150 MG AT BEDTIME NEED.. 04/23 1400 DC 04/26 PO 214 Vital Signs Date Time Temp Pulse Resp B/P B/P Pulse O2 O2 Flow FiO2 Mean Ox Delivery Rate 04/27 08 96.8 60 122/78 04/27 0747 96.8 60 122/78 04/26 1955 98.3 80 117/70 04/26 1947 98.3 80 117/70 04/26 1558 66 125/64 04/26 1540 66 125/64 04/26 1212 67 128/73 03 1209 67 128/73 MSE General appearance: good hygiene and grooming; Attitude: cooperative; Eye contact: appropriate; Movement: no psychomotor agitation or slowing; Speech: nl fluency, nl rate/rhythm, nl volume, nl prosody; Mood: "alright" Affect: slightly irritable, flat, appropriate, constricted, non-labile, congruent; Thought process: linear and goal-directed; Thought content: denied SI or HI, no paranoid ideation; Perception: denied hallucinations- auditory, visual, does not appear to be responding to internal stimuli; I/J: limited A/P: Pt with MDD with SI now with slightly improved mood now more interactive today -Continue current medication regimen except increase trazodone to 200mg -Encourage integration into the milieu
[2017-04-28 07:49] VITALS: BP 120/62
[2017-04-28 07:53] VITALS: BP 120/62
[2017-04-28 12:23] VITALS: BP 139/79
--- NOTE | 2017-04-28 14:52 | CP SOUTH PROGRESS NOTE PSYCH ---
Psych (Inpt) Progress Note Progress Note Include the following elements, when applicable: Involvement in the active treatment of the patient with behavioral observations of the patient and the patient's response to the treatment. Review of the ongoing treatment process in the context of the treatment plan. Indication of how multi-disciplinary staff members are carrying out the treatment plan. Plans for future interventions and recommendations for revision of the treatment plan. Liaison with other physicians/providers. Progress Note: Dr. Moss's notes reviewed. Case and treatment plan discussed in team meeting. Staff reports that the patient is denying suicidal ideation. Social with peers. He appeared withdrawn last evening. Said he slept well. Patient completed detox and we will discontinue CIWA. Patient seen at 10:30 AM with Ina Thurman LCSW. Patient reports it is going well. It appears that he showered. He is neatly dressed. Appears awake and alert. Reports his only complaint is just not knowing where he is going. Reports mood is decent. Reports Ritalin is definitely helping but not as much as Concerta. Reports mother wants him to attend a year-long gnosticism program but patient does not want to do that. Rate mood 3/10 and anxiety 1/10. Denies feeling hopeless, helpless, worthless or guilty. Denies active and passive suicidal ideation. Denies homicidal ideation. Denies auditory and visual hallucinations and paranoid ideation. Reports sleep has gotten a little better. Reports appetite is good. Reports energy is probably medium. Denies withdrawal symptoms. Tolerating medications well, without complaint. Patient is open to going to [place]. Feels ready and safe for discharge. IMPRESSION: Slow progress. Continue present treatment plan. Mother will not accept the patient home. We are looking into placement options but it is unlikely that the patient will be placed today.
[2017-04-28 15:59] VITALS: BP 114/69
--- NOTE | 2017-04-28 16:59 | SOCIAL WORKER PROG NOTE PSYCH ---
Social Work Progress Note Progress Note 9:51am: This sign writer hand met with patient. He described his mood as "decent." He stated that he called 211 over the weekend and has scheduled a CAN assessment at [facility] for 04/29/17 between 10am and 1pm. Patient stated that he is now willing to explore/attend inpatient treatment/rehab. He signed MARGARITA's for [facility] and [facility] and stated that he has also called them. Clinical was faxed to these agencies (history and physical, diagnostic assessment, social history, medication list and initial assessment) in interest of making a referral. Patient was informed that clinical has also been faxed to [facility] (last week) in interest of their inpatient program. Patient was also informed of [facility], which he expressed interest in and signed an MARGARITA. Patient and this sign writer hand call [facility] and spoke with Mehnaz about their program. She stated that it is an IOP/PHP with housing. Mehnaz clarified that there are no overnight clinicians, MD's manager inventory control's and medications are stored in a lock box. She stated that there is a $50 weekly housing fee which also includes food and evening programming/activities. Mehnaz stated that the program is 3-6 weeks and stated that a referral can be made by faxing clinical. Patient signed an MARGARITA and the demographics, social, medication list, history and physical and psychiatric admission note were faxed to their admission office. Patient was also agreeable to making a referral to the [facility] and clinical was faxed. This sign writer hand and patient contacted his mother, Galina Victoria, by phone. Patient's mother was informed of the programs that the patient has been referred to, to include [facility]. Patient's mother maintains that he cannot return home to her and felt that a higher level of care is needed. She was informed of the $50 weekly fee for [facility], which she stated that she would be willing to pay for him. Patient's mother stated that she did not feel that discharging today to a retirement would be a safe discharge due to concerns that the patient would relapse on substance use. She was informed that this sign writer hand would follow up with [facility] today regarding the referral. This sign writer hand spoke with Flo at the [facility]. He stated that he reviewed the referral sent last week and did not feel that the patient would be appropriate for their program. This sign writer hand asked for clarity, to which he responded that he could not remember specifics and that he had thrown away the referral: "some of the stuff was a little alarming." This sign writer hand spoke with Veda at [facility] regarding the referral. She stated that there were no available beds at this time and that the patient would be contacted later today for a phone screening. She anticipated that it would be "a few days" for a bed. Patient was agreeable to a referral to [facility]. The referral and medication list were faxed to both [facility] and [facility] locations. MARGARITA signed. As discussed with Dr. Vail, patient would not be discharged today. Patient stated that he would call his mother as well as [phone] as the CAN assessment was scheduled for tomorrow.
--- NOTE | 2017-04-28 17:38 | SOCIAL WORKER PROG NOTE PSYCH ---
Social Work Progress Note Progress Note Completed [facility] online review. Check [facility] website for next review date.
[2017-04-28 19:53] VITALS: BP 118/77
[2017-04-29 07:37] VITALS: BP 132/90
--- NOTE | 2017-04-29 12:07 | CP SOUTH PROGRESS NOTE PSYCH ---
Psych (Inpt) Progress Note Progress Note Include the following elements, when applicable: Involvement in the active treatment of the patient with behavioral observations of the patient and the patient's response to the treatment. Review of the ongoing treatment process in the context of the treatment plan. Indication of how multi-disciplinary staff members are carrying out the treatment plan. Plans for future interventions and recommendations for revision of the treatment plan. Liaison with other physicians/providers. Progress Note: Case and treatment plan discussed in team meeting. Staff reports that the patient is denying suicidal ideation. Patient seen at 10:27 AM. He was in group prior to meeting with me in office. States he is all right. Has no complaints. Affect is calm and blunted but brighter than several days ago. States that there is no news about placement. Reports mood is kind of in the middle. Rates sad mood 2/10 and anxiety 3/10. Denies feeling hopeless, helpless, worthless or guilty. Denies active and passive suicidal ideation. Denies homicidal ideation. Denies auditory and visual hallucinations and paranoid ideation. Denies cravings and denies withdrawal. Tolerating medications except feels a little extra groggy in the morning from trazodone. We will reduce standing trazodone by 50 mg. Reports he went to bed at 7 PM and he slept okay but was really tired upon awakening at 6 AM and he could not get back to sleep. Describes appetite as good and energy as medium. IMPRESSION: Condition improving. Patient could be discharged today if he has an appropriate placement. We will reduce standing trazodone by 50 mg.
[2017-04-29 12:21] VITALS: BP 121/65
[2017-04-29 15:58] VITALS: BP 117/56
--- NOTE | 2017-04-29 17:31 | SOCIAL WORKER PROG NOTE PSYCH ---
Social Work Progress Note Progress Note 2:06pm This music writer spoke with Mehnaz at [facility], who requested that the patient's history and physical and psychiatric admission note is refaxed as the copy they received was not clear. Documents were refaxed today at 2:15pm 3:15pm This music writer met with patient. He described his mood as "in the middle" and identified feeling anxious due to uncertainty. Patient denied any cravings, triggers or urges and denied SI/HI/AH/HV. Patient explained the situation that occurred at home in which he cut his finger. He stated that he had been under the influence and was throwing knives and stars at piece of wood. During this, he cut his finger (right index finger) resulting in bleeding. Patient stated that he was unsure of specific details of this event. Patient denied any hx of violence and stated that he took karate as a child for 13 years, in which he learned about avoiding violence. Patient stated that he began drinking alcohol around age 18 and smoking MJ around age 18. Patient stated that he had his brain surgery in 2010 which he believed to have led to memory difficulties and issues with his mood. Patient was informed of the above conversation with [facility] and that this music writer would be contact [facility] for a phone screening. 3:34pm This music writer spoke with Andria at [facility] ([phone]) who requested to call this music writer later in the day as she was currently in a meeting.
[2017-04-29 20:02] VITALS: BP 125/76
[2017-04-30 07:52] VITALS: BP 126/70
[2017-04-30 12:23] VITALS: BP 128/71
--- NOTE | 2017-04-30 14:38 | CP SOUTH PROGRESS NOTE PSYCH ---
Psych (Inpt) Progress Note Progress Note Include the following elements, when applicable: Involvement in the active treatment of the patient with behavioral observations of the patient and the patient's response to the treatment. Review of the ongoing treatment process in the context of the treatment plan. Indication of how multi-disciplinary staff members are carrying out the treatment plan. Plans for future interventions and recommendations for revision of the treatment plan. Liaison with other physicians/providers. Progress Note: Case and treatment plan discussed in team meeting. Staff reports that the patient is working on discharge planning. Feels stable. Expressed hopelessness about changing the future. Patient seen at 1:02 PM. He is dressed in blue paper scrubs. Reports he is doing his wash. Affect is calm and blunted to euthymic. States "I'm all right. " Reports he has called [employer] and [employer]. Rates sad mood 10 and anxiety 03/05. Denies feeling hopeless, helpless, worthless or guilty. Denies suicidal and homicidal ideation. Denies auditory and visual hallucinations and paranoid ideation. Reports sleep is still not great. He found that on trazodone 150 mg at bedtime, he had middle of the night awakenings but it was easier to get up than when he was on 200 mg. Appetite is good. Energy is moderate. Tolerating medications well, without complaint. IMPRESSION: Slow progress. Continue present treatment plan. We are trying to locate a rehab for the patient.
--- NOTE | 2017-04-30 14:52 | SOCIAL WORKER PROG NOTE PSYCH ---
Social Work Progress Note Progress Note This bond underwriter met with patient. He described his mood as "decent." He denied SI/ HI/AH/VH and stated that he finds that the medications have been helpful. Patient was informed that this bond underwriter has left a vm for [facility] today (at 1: 52pm) inquring about his referral. Patient was also informed that a phone screening with Jany at [facility] has been scheduled for 05/01/17 at 12:30pm. Patient was agreeable to attend this screening. Jany stated that a bed may be available next week.
[2017-04-30 15:40] VITALS: BP 134/70
[2017-04-30 19:24] VITALS: BP 129/70
[2017-05-01 07:39] VITALS: BP 138/71
--- NOTE | 2017-05-01 11:05 | CP SOUTH PROGRESS NOTE PSYCH ---
Psych (Inpt) Progress Note Progress Note Include the following elements, when applicable: Involvement in the active treatment of the patient with behavioral observations of the patient and the patient's response to the treatment. Review of the ongoing treatment process in the context of the treatment plan. Indication of how multi-disciplinary staff members are carrying out the treatment plan. Plans for future interventions and recommendations for revision of the treatment plan. Liaison with other physicians/providers. Progress Note: Case and treatment plan discussed in team meeting. Patient has a screening with [facility] today at 12:30 pm. Patient seen at 10:47 a.m. He was in group prior to meeting with me in office. States he is alright. Affect is calm and blunted. Mood is "decent." Sad 06/03. Anxiety 04/05. Denies feeling hopeless, helpless, worthless or guilty. Denies SI, HI, AH, VH and PI. Sleep: reports it was a little better last night. Feels groggy in the a.m. but ablt to tolerate it. Reports it takes him a while to wake up, an hour or two. Appetite: good. Energy: medium. Tolerating medications. Requests increase in Ritalin dose, reporting he is having trouble remembering which rehabs he has called. He hopes his mother will reconsider and take him home. IMPRESSION: Slow progress. Continue present treatment plan. We will now increase Ritalin to 20 mg q8am and 10 mg qNoon. Placement remains problematic.
[2017-05-01 11:54] VITALS: BP 135/75
--- NOTE | 2017-05-01 14:09 | SOCIAL WORKER PROG NOTE PSYCH ---
Social Work Progress Note Progress Note Pt will be presented for possible acceptance at [facility] and that will be confirmed 05/02/17. He did the screening and it went well. They should call us in the morning. I called Mom all day thus far, in an effort to explain how he is ready for discharge from the hospital and does have several options post discharge to support recovery, she has not called back as of yet. Dr. Vail ordered a PPD and EKG per request of [facility].
--- NOTE | 2017-05-01 15:34 | SOCIAL WORKER PROG NOTE PSYCH ---
Social Work Progress Note Progress Note [employer] [id number] 1985 [employer] [employer] [id number] Pended Authorization # Client Authorization # Type of Request [id number] CONCURRENT Date of Admission/ Start of Services Requested From Submission Date 04/21/2017 05/01/2017 05/01/2017
--- NOTE | 2017-05-01 15:35 | SOCIAL WORKER PROG NOTE PSYCH ---
Social Work Progress Note Progress Note Pt has an intake at [facility] 05/02/17 at 11:30am. Iam and Nanette all need calls to confirm plan and acceptance.
[2017-05-01 16:25] VITALS: BP 130/77
--- NOTE | 2017-05-01 18:11 | SOCIAL WORKER PROG NOTE PSYCH ---
Social Work Progress Note Progress Note This advertising copywriter met with patient. He described his mood as "good." He denied SI/HI /AH/VH. Patient stated that he was agreeable to staying with his mother upon discharge until entering inpatient/rehab and agree to abide by her rules (giving her his food stamp card, holding his medications and confirming that he has a bed.). Patient was concerned that these rules would change and was agreeable to calling his mother. Patient's mother, Galina, was contacted by phone and it appeared that she was unsure about her willingness to follow through with these rules. It was ultimately determined that this advertising copywriter would follow up with her tomorrow morning and she would consider the rules between now and then. Patient was agreeable to attending IOP at with intake tomorrow at 11:30am. This advertising copywriter will contact [facility]ette tomorrow to follow up regarding the bed.
[2017-05-01 19:29] VITALS: BP 116/67
[2017-05-02 07:31] VITALS: BP 118/68
[2017-05-02] MEDS ORDERED: GABAPENTIN400 M2 PO (10:42)
[2017-05-02] MEDS ORDERED: CONCERTA36 M1 PO (10:42)
[2017-05-02] MEDS ORDERED: MELATONIN5 M7 PO (10:42)
[2017-05-02] MEDS ORDERED: ONE DAILY MULT1 EAC2 PO (10:42)
[2017-05-02] MEDS ORDERED: TRAZODONE HCL50 M1 PO (10:42)
[2017-05-02] MEDS ORDERED: ABILIFY5 M1 PO (10:42)
[2017-05-02] MEDS ORDERED: VENTOLIN HFA18 GM PO (10:42)
--- NOTE | 2017-05-02 10:48 | Patient Discharge Instructions ---
Psych Discharge Inst General Discharge Information Reason for Admission: SI in the context of being off most medications except Neurontin, being out of treatment, alcohol abuse, unemployment and low structure. 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 Summary Tests/Major Procedures Lab ALT 29 U/L 04/18/17 1300 AST 21 U/L 04/18/17 1300 BUN 7 mg/dL L 04/18/17 1300 Calcium 9.5 mg/dL 04/18/17 1300 Carbon Dioxide 27 mmol/L 04/22/17 0639 Chloride 101 mmol/L 04/22/17 0639 Cholesterol 165 MG/DL 04/22/17 0639 Cholesterol/HDL Ratio 3 % 04/22/17 0639 Creatinine 0.8 mg/dL 04/18/17 1300 Estimated GFR > 60 ml/min 04/18/17 1300 Free T4 0.79 ng/dL 04/22/17 0639 Glucose 104 mg/dL H 04/18/17 1300 HDL Cholesterol 53 mg/dL 04/22/17 0639 Hemoglobin A1c 5.0 % 04/22/17 0639 LDL Cholesterol, Calc 93 mg/dL 04/22/17 0639 Lipase 52 U/L 04/18/17 1300 Potassium 4.0 mmol/L 04/22/17 0639 Sodium 139 mmol/L 04/22/17 0639 TSH 2.810 uIU/mL 04/24/17 0643 TSH &T3 &Free T4 Intrp 5.030 uIU/mL H 04/22/17 0639 Total Bilirubin 0.2 mg/dL 04/18/17 1300 Total T3 1.26 ng/mL 04/22/17 0639 Triglycerides 99 mg/dL 04/22/17 0639 Barbiturate Screen 546 NG/ML H 04/19/17 1255 Serum Alcohol 239.0 MG/DL 04/18/17 1300 EKG 05/01/17 showed sinus rhythm @ 70, borderline right axis deviation, no significant change, otherwise normal EKG, QT 384, QTc 415. Studies Pending at [place]: None. Patient Instructions Contact Information Your Psychiatrist on [facility] was Yared HERNANDEZ,Shoaib * If you are experiencing an emergency related to this hospitalization, please call [phone] to contact the treating psychiatrist or the psychiatrist-on- call. * To Request a copy of your medical records, please contact the Medical Records Department at [phone]. * To request results of studies pending at the time of discharge, please call [phone]. * Continue your Medications until directed to stop by your Healthcare provider. General Medication Information Please continue to take your new medications and your continued home medications , unless otherwise indicated on your discharge medication list, or unless directed by your MD or [employer] to stop them. Special Instructions Diet Regular Activity Normal Other Inst/Recommendations Have PPD read and documented b/t 05/03/17 5:45 pm and 05/04/17 5:45 pm. - Tobacco Use Treatment Offered Post DC Medications Offered: Script Given-See Med List Post DC Tobacco Treatment Plan: [facility] Program Appt Date: 05/14/17 Program Appt Time: 1600 - EtOH/Drug Use D/O Treatment Offered Post DC Medications Offered: Med Not Indicated for D/O Post DC EtOH/SubAbuse [place] Plan: [facility] SubAbuse/Dual IOP Program Appt Date: 05/02/17 Program Appt Time: 1130 Metabolic Screening () Not Applicable, patient not on a neuroleptic. OR () Patient on a neuroleptic(s) . Enter below results for Hemoglobin A1C, and lipid panel if obtained during the last 365 days. BMI: 26.100 Blood Pressure: 118/68 Laboratory Results From [facility] E[facility] (If applicable): [x] Lab Cholesterol 165 MG/DL 04/22/17 0639 Cholesterol/HDL Ratio 3 % 04/22/17 0639 HDL Cholesterol 53 mg/dL 04/22/17 0639 Hemoglobin A1c 5.0 % 04/22/17 0639 LDL Cholesterol, Calc 93 mg/dL 04/22/17 0639 Triglycerides 99 mg/dL 04/22/17 0639 Advance Directives Does the Patient have Medical Advance Directives No/Refused further info Does Pt have Psychiatric Advance Directives? No/Refused further info Does Patient have a Designated Surrogate Decision Maker: No Information About Psychiatric Advance Directives Provided? Refused Discharge Plan Post Hospital Treatment Plan: Will stay with mother and attend [facility]. [facility] is planning to accept patient on 05/07/17. [facility]ette will need a urine drug screen done that morning. [facility] will need PPD result.
[2017-05-02] MEDS ORDERED: NICORETTE2 M2 PO (10:59)
--- NOTE | 2017-05-02 11:47 | CP SOUTH PROGRESS NOTE PSYCH ---
See Addendum Psych (Inpt) Progress Note Progress Note Include the following elements, when applicable: Involvement in the active treatment of the patient with behavioral observations of the patient and the patient's response to the treatment. Review of the ongoing treatment process in the context of the treatment plan. Indication of how multi-disciplinary staff members are carrying out the treatment plan. Plans for future interventions and recommendations for revision of the treatment plan. Liaison with other physicians/providers. Progress Note: Case and treatment plan discussed in team meeting. Staff reports that the patient is denying SI. Doing okay. Isolates some. Has IOP intake at 11:30 a.m. Patient seen at 10:44 a.m. He was in group prior to meeting with me in office. Feels good. Has no complaints. Affect is calm and blunted to euthymic. Mood is good. Sad 03/05. Anxiety 03/05. Denies feeling hopeless, helpless, worthless or guilty. Denies active and passive SI, HI, AH, VH and PI. Reports he slept better last night than any other night here. Appetite: good. Energy: good. Tolerating medications except reports he has a little a.m. drowsiness but he gets over it within an hour or so. Denies cravings. Feels ready and safe for discharge. Patient was treated here with Ritalin for ADHD, unspecified, F90.9. Medication is being changed on discharge to Concerta 36 mg po qAM. IMPRESSION: Condition improved. Okay for discharge today to [facility] and mother's home. Patient anticipates going to [facility] on Friday. Patient is aware he needs PPD read between 5:45 pm on 05/03/17 and 5:45 pm on 01/11. Patient is aware he needs a urine drug screen done on Friday a.m., 05/07/17.
--- NOTE | 2017-05-02 11:48 | IP INCIDENTAL NOTE PSYCH ---
Incidental Note Notation: Call returned to Flori at [facility] [phone]. I gave her the ICD-10 code F90.9 for Concerta Rx.
--- NOTE | 2017-05-02 12:04 | DISCHARGE SUMMARY REPORT-PSYCH ---
Visit Information Visit Dates/Diagnosis' Admission Date: 04/21/17 Discharge Date: 05/02/17 Reason for Admission: SI in the context of being off most medications except Neurontin, being out of treatment, alcohol abuse, unemployment and low structure. 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 Hospital Course Significant Lab Findings: Lab ALT 29 U/L 04/18/17 1300 AST 21 U/L 04/18/17 1300 BUN 7 mg/dL L 04/18/17 1300 Calcium 9.5 mg/dL 04/18/17 1300 Carbon Dioxide 27 mmol/L 04/22/17 0639 Chloride 101 mmol/L 04/22/17 0639 Cholesterol 165 MG/DL 04/22/17 0639 Cholesterol/HDL Ratio 3 % 04/22/17 0639 Creatinine 0.8 mg/dL 04/18/17 1300 Estimated GFR > 60 ml/min 04/18/17 1300 Free T4 0.79 ng/dL 04/22/17 0639 Glucose 104 mg/dL H 04/18/17 1300 HDL Cholesterol 53 mg/dL 04/22/17 0639 Hemoglobin A1c 5.0 % 04/22/17 0639 LDL Cholesterol, Calc 93 mg/dL 04/22/17 0639 Lipase 52 U/L 04/18/17 1300 Potassium 4.0 mmol/L 04/22/17 0639 Sodium 139 mmol/L 04/22/17 0639 TSH 2.810 uIU/mL 04/24/17 0643 TSH &T3 &Free T4 Intrp 5.030 uIU/mL H 04/22/17 0639 Total Bilirubin 0.2 mg/dL 04/18/17 1300 Total T3 1.26 ng/mL 04/22/17 0639 Triglycerides 99 mg/dL 04/22/17 0639 Barbiturate Screen 546 NG/ML H 04/19/17 1255 Serum Alcohol 239.0 MG/DL 04/18/17 1300 EKG 05/01/17 showed sinus rhythm @ 70, borderline right axis deviation, no significant change, otherwise normal EKG, QT 384, QTc 415. Course Complications: None. Consultations: The patient was seen by Dr. Bjorn Sal for admission H&P. Please refer to Dr. Sal's note for additional information. Allergies: Coded Allergies: peanut (Severe, ANAPHYLAXIS 09/04/15) wheat (Mild, WHOLE WHEAT - GI UPSET/CRAMPING 01/09/17) PATIENT CAN EAT PROCESS WHEAT (LIKE BREAD) BUT NOT WHOLE OR UNPROCESS WHEAT clams (ITCHING SWELLING 09/04/15) Hospital Course/TX Response: The patient was monitored on the unit for safety, alcohol withdrawal and mood disorder. He participated in multi-modal treatments on the unit. Alcohol detox was uneventful. Neurontin was continued. Abilify was restarted. Ritalin was added towards end of detox. Patient has been on Concerta for years and Concerta is not on- formulary here. Concerta is being ordered on discharge at 36 mg po qAM. The patient is also on melatonin and trazodone for sleep. Mood and affect have improved. Suicidal ideation has remitted. Progress note from date of discharge, 05/02/17: Case and treatment plan discussed in team meeting. Staff reports that the patient is denying SI. Doing okay. Isolates some. Has IOP intake at 11:30 a.m. Patient seen at 10:44 a.m. He was in group prior to meeting with me in office. Feels good. Has no complaints. Affect is calm and blunted to euthymic. Mood is good. Sad /10. Anxiety /10. Denies feeling hopeless, helpless, worthless or guilty. Denies active and passive SI, HI, AH, VH and PI. Reports he slept better last night than any other night here. Appetite: good. Energy: good. Tolerating medications except reports he has a little a.m. drowsiness but he gets over it within an hour or so. Denies cravings. Feels ready and safe for discharge. Patient was treated here with Ritalin for ADHD, unspecified, F90.9. Medication is being changed on discharge to Concerta 36 mg po qAM. IMPRESSION: Condition improved. Okay for discharge today to [facility] and mother's home. Patient anticipates going to [facility] on Friday. Patient is aware he needs PPD read between 5:45 pm on 05/03/17 and 5:45 pm on 01/11. Patient is aware he needs a urine drug screen done on Friday a.m., 05/07/17. Discharge HBIPS - Tobacco Use Treatment Offered Post DC Medications Offered: Script Given-See Med List Post DC Tobacco Treatment Plan: [facility] Program Appt Date: 05/14/17 Program Appt Time: 1600 - EtOH/Drug Use D/O Treatment Offered Post DC Medications Offered: Med Not Indicated for D/O Post DC EtOH/SubAbuse TX Plan: [facility] SubAbuse/Dual IOP Program Appt Date: 05/02/17 Program Appt Time: 1130 Metabolic Screening - Screen if on a Neuroleptic Medication - Metabolic screening should include: - Blood Pressure, BMI, Glucose or Hgb A1c, & a - Lipid profile from within the past 365 days. Metabolic Screening () Not Applicable, patient not on a neuroleptic. OR () Patient on a neuroleptic(s) . Enter below results for Hemoglobin A1C, and lipid panel if obtained during the last 365 days. BMI: 26.100 Blood Pressure: 118/68 Laboratory Results From [facility] EHR (If applicable): [x] Lab Cholesterol 165 MG/DL 04/22/17 0639 Cholesterol/HDL Ratio 3 % 04/22/17 0639 HDL Cholesterol 53 mg/dL 04/22/17 0639 Hemoglobin A1c 5.0 % 04/22/17 0639 LDL Cholesterol, Calc 93 mg/dL 04/22/17 0639 Triglycerides 99 mg/dL 04/22/17 0639 Discharge Instructions General Discharge Information Multiple Neuroleptics: ([x]) Not Applicable OR Document below three failed attempts at monotherapy, or a plan to taper to monotherapy, or augmentation of Clozapine. () Discharge Diet Regular Discharge Activity Normal DC Disposition: Patient will attend [facility] and return to mother's home with plan to go to [facility] on 05/07/17. Referrals Ordered Referrals Provider Referral 05/02/17 For Groups: [[facility]] [facility] [address], [place] [phone] IOP intake appointment: 05/02/17. at 11:30am Provider Referral For Groups: [[facility]] [address] [phone] Access Line: [phone] Prescriptions Stop taking the following medications: Methylphenidate HCl (Methylphenidate ER) 54 MG TAB.ER.24 ORAL Every Morning Qty = 30 Continue taking these medications: Montelukast Sodium (Singulair) 10 MG TABLET Comments: Last Taken:05/01/17 Time:10pm Aripiprazole (Abilify) 5 MG TABLET 5 Milligram ORAL DAILY @8 AM Qty = 14 Instructions: Take 1 tablet by mouth every morning. Comments: Last Taken:05/02/17 Time:8am This prescription has been renewed Start taking the following new medications: Trazodone HCl (Trazodone HCl) 50 MG TABLET 3 Tablet ORAL AT BEDTIME Qty = 42 No Refills Comments: Last Taken:05/01/17 Time:10pm Multivitamin (One Daily Multivitamin) 1 EACH TABLET 1 Tablet ORAL DAILY Qty = 14 No Refills Comments: Last Taken:05/02/17 Time:8am Melatonin (Melatonin) 5 MG TABLET 2 Tablet ORAL AT BEDTIME Qty = 28 No Refills Comments: Last Taken:05/01/17 Time:10pm Methylphenidate HCl (Concerta) 36 MG TAB.ER.24 1 Tablet ORAL DAILY Qty = 14 No Refills Comments: Last Taken:05/02/17 Time:12pm Nicotine Polacrilex (Nicorette) 2 MG GUM 1 Gum ORAL Q2H as needed for nicotine craving Qty = 100 No Refills The following medications have been changed: Old: Gabapentin (Gabapentin) 400 MG CAPSULE 400 Milligram ORAL SEE INSTRUCTIONS Qty = 70 New: Gabapentin (Gabapentin) 400 MG CAPSULE 400 Milligram ORAL SEE INSTRUCTIONS Qty = 70 Instructions: Take 1 capsule(400mg)by mouth at 8AM,12PM,and 6PM.Take 2 capsules (800mg) at 10PM. Comments: Last Taken:05/02/17 Time:12pm Old: Albuterol Sulfate (Ventolin Hfa) 90 MCG HFA.AER.AD 2 Puff ORAL as needed for ASTHMA New: Albuterol Sulfate (Ventolin Hfa) 90 MCG HFA.AER.AD 2 Puff ORAL EVERY SIX HOURS NEEDED as needed for ASTHMA Qty = 1 Comments: Last Taken:04/27/17 Time:4am Other Inst/Recommendations Have PPD read and documented b/t 05/03/17 5:45 pm and 05/04/17 5:45 pm. Studies Pending at Discharge None. Copies To: Intensive Outpt Psychiatry; [facility]
--- NOTE | 2017-05-02 17:50 | SOCIAL WORKER PROG NOTE PSYCH ---
Social Work Progress Note Progress Note This personal lines underwriter spoke with Jany at [facility]. She informed that the patient would be accepted into their program pending a negative PPD as well as receipt of EKG and documentation regarding medical necessity for stimulants. The latter two were faxed to [facility] at [phone] hours today (fax, ). Patient will utilize a walk in center to read the PPD tomorrow. Jany state that a bed would be available no later than Friday05/07/17 and possibly earlier. PPD results may be faxed by [facility] on Friday05/05/17. As patient is discharging today, Jany requested that a urine test with immediate results is conducted on Friday (or the day that he is being admitted to their program) from the [facility] with transport to their program via the Access Line. Jany requested that the patient not be permitted to leave the building after the urine sample is rendered. Patient was informed of this and will bring any belongings and medication to the [facility] on that day. He was agreeable to this and this information was relayed to Chanda Austin LPC at [facility]. This personal lines underwriter and patient met. He reported that he felt ready to discharge today with the plan to attend [facility] (intake at 11:30am today) until he enters [facility]. He denied SI/HI/AH/VH. This personal lines underwriter and patient spoke with his mother , Galina Victoria, by phone. She was informed of the ancticipated admission to [facility] on 05/07/17 and that he is due to have his PPD read tomorrow. Patient' s mother reviewed her rules that he must follow in order to return home while waiting for inpatient treatment: he must agree to provide her with his food stamp card, no substance use and that she will hold and dispense his medications. Patient was agreeable to this as well as attending AA meetings this weekend. He stated that he has identified meetings that he is able to attend (time/location). Patient will utilize [facility] for transport (pickling grader at [address] [place] [address] at 12:30pm today, ref: [id number]). Beth Austin was also informed of the rules set by his mother. Patient's mother requested that her phone is provided to [facility]. This personal lines underwriter provided this to Jany at [facility], however, she stated that authorization to speak with Ms. Victoria would need to be provided by the patient prior to any communication. Patient was informed. Faxed Referral(s) Referred To: [facility] Transition of Care Documents sent: Health Summary Faxed to: [facility] Fax #: [phone] Faxed by: Angela Thurman ELEMENTARY EDUCATION TEACHER Date faxed: 05/02/17 Time Faxed: [phone]
--- NOTE | 2017-05-05 10:37 | IP INCIDENTAL NOTE PSYCH ---
Incidental Note Notation: Ina Pierre returned call to patient's mother. She reports that she, an RN, read PPD and it was negative. She returned from work this morning and found patient groggy with 2 beer cans nearby. I informed mother that patient has an evening IOP appointment at 5 pm today. I will ask IOP to consider Antabuse, Campral or Revia.
--- NOTE | 2017-05-05 11:08 | SOCIAL WORKER PROG NOTE PSYCH ---
Social Work Progress Note Progress Note Dr. Vail and this jingle writer returned patient's mother's call. She reported that she found two beer cans in the patient's room and was unsure how he had access to beer. Discharge plan was reviewed, as had been discussed last week prior to discharge. We requested to speak with the patient. His mother provided him with the phone. Patient stated that he was unsure as to when he was scheduled to attend [facility] and was informed that it was 5pm tonight. The discharge plan was reviewed with the patient (IOP and AA meetings until entering [facility]), and patient hung up the phone. Beth Austin LPC was informed of this call. This jingle writer received call from Katlyn montes [facility] requesting documentation regarding the medical necessity of the stimulant that was prescribed. In addition she requested a copy regarding the PPD results and began to review the process of the patient providing a [facility] at [facility] on Friday (when he is anticipated to begin their program). She was reminded that the patient has discharged and is scheduled to attend [facility]. She was provided with the [facility] number. [facility] was also informed of this call.
== END 2017-05-02 11:41 | DRG 751 ==
LOC: CP SOUTH 10:56
PROVIDERS: Psychiatry & Neurology Psychiatry
DX: F33.9 Major depressive disorder, recurrent, unspecified (principal); F90.9 Attention-deficit hyperactivity disorder, unspecified type; F10.10 Alcohol abuse, uncomplicated
CPT/HCPCS: 36415; 93005; 93010; J3490